=== PATIENT | female | born 1965 | race Caucasian/White ===

== ENCOUNTER → 2023-07-16 06:33 | Day surgery (SDC) | payer OTHER, SELFPAY | LOC: GI 06:33 | PROVIDERS: ATTENDING PHYSICIAN Internal Medicine Gastroenterology | DX: R13.10 Dysphagia, unspecified (principal); R12 Heartburn; K31.89 Other diseases of stomach and duodenum | CPT/HCPCS: 43239; 88305; 88342 ==

== ENCOUNTER 2024-08-14 23:00 | Inpatient (IN) | payer OTHER, SELFPAY ==
[2024-08-14 19:08] VITALS: BP 144/89
[2024-08-14 19:11] VITALS: BP 144/89
[2024-08-14 20:00] VITALS: BP 117/78
--- NOTE | 2024-08-14 20:06 | ED.GENMED ---
History of Present Illness
<Shannan Santamaria PA-C - Last Filed: 08/15/24 02:20>
General
Chief Complaint: Fall
Source: patient
Exam Limitations: none
Time Seen by Provider: 08/14/24 19:33
Nursing documentation reviewed up to this point in time: agreed with
History of Present Illness
History of Present Illness:
pt is a 59 y/o F
h/o afib on warfarin
last INR 2.1 last week
here with large hematoma to L anterior lower leg after a fall
was standing in a door way and her dog pushed past her causing her to fall with her L knee flexed and she landed on his back with her lower leg
she has a large hematoma that has developed and expanded
she has no paresthesias, weaknses in the leg
has a lot of pain with walking due to feeling 'throbbing' feeling of the blood rushing to her lower leg
no open drainage of the heamtoma
she has a history of a large hematoma to the R lower leg last year that required debridement after it became necrotizing/infected
she is asked for this hematoma to be drained
Past History
<Shannan Santamaria PA-C - Last Filed: 08/15/24 02:20>
Past History
ED Past Medical History: Arrthythmia (Atrial fibrillation), CAD, Fibromyalgia, HTN, Hypercholesterolemia, GA (non-ST), Psychiatric (Depression, anxiety, history of drug overdose September 2008) and Other (right lower extremity hematoma with cellulitis
November 2021, cardiomyopathy, migraine, kidney infection)
ED Past Surgical History: Cardiac (CARD CATH WITH STENTS 03/07/2008,02/03 2011,2012,08/12), Gynecological (Tubal ligation 1994) and Orthopedic (Orthopedic)
Social History
Tobacco: Smoker (Quit 2017)
Alcohol: Occasional
Drug: None
Personal:
Living: with family
Employment: Not employed
Family History
Family History: CAD
Review of Systems
<Shannan Santamaria PA-C - Last Filed: 08/15/24 02:20>
Review of Systems
Allergies reviewed?: Yes
All Other Systems: Not applicable
Phy Exam
<Shannan Santamaria PA-C - Last Filed: 08/15/24 02:20>
Physical Exam
Physical Exam:
GENERAL: Alert , in no apparent distress
HEAD: NCAT
NECK: no midline tenderness, active ROM intact, no paraspinal muscle tenderness;
EYE: pupils equal and reactive, EOMs intact.
ENT: o/p clr, mmm. no hemotympanum
CARDIAC: Regular rate and rhythm, no edema
LUNGS: Clear breath sounds bilaterally, no acute respiratory distress, no wheezes/rales/rhonchi
ABDOMEN: Soft, without focal tenderness, no r/g, no cvat
NEUROLOGICAL: Alert and oriented, no focal neuro deficits, CN intact, 5/5 strength, sensation intact
SKIN: Warm and dry, intact large hematoma L anterior lower leg irregularly shaped, nearly the entire lower leg from above the ankle to below the knee which is anterior; very tender
MUSCULOSKELETAL: L calf soft, nontender, soft compartment, normal sensation and strength;
ankle and foot normal
PSYCH: Normal and appropriate interaction.
Course
<Shannan Santamaria PA-C - Last Filed: 08/15/24 02:20>
Orders/Labs/Results
Orders:
Orders
08/14/24 20:05
CR Leg Tibia/fibula Left 2 Vw Urgent
Comment:
Reason For Exam: fall on L lower leg; hematoma
08/14/24 20:43
Oxycodone [Roxicodone] 5 mg PO NOW STA
08/14/24 20:53
HYDROmorphone [Dilaudid] 1 mg IV NOW STA
08/14/24 20:54
CeFAZolin 2 GRAM [Ancef] 2 grams in 10 ml IV NOW
08/14/24 21:14
Complete Blood Count/With Diff Urgent
Prothrombin Time Urgent
08/14/24 22:49
Admit/Transfer Patient As Directed
Co-Sign Provider:
Level of Care: Inpatient admission
Assign to:: Medical/Surgical
Physician / Group: danna
Diagnosis: hematoma
Reason for Hospitalization: hematoma
Expected length of stay greater than two midnights?: Yes
ELOS- Estimated Length of Stay in days: 2
I certify the patient meets the requirements for IP care: Yes
PRN Pain Medication Management As Directed
May give lesser potent ordered pain med per pt: Yes
preference::
Protocol:: Medication orders for pain may be administered in a
manner that supports deferring to patient preference
when the pt is:
- Requesting an ordered lesser potent pain medication.
Least to most potent pain medications are defined
as: acetaminophen < NSAID < tramadol < opioids
(morphine, oxycodone, hydromorphone).
- Requesting a lesser dose of the same medication IF
ORDERED.
- Requesting a less intrusive route of administration
if both routes are prescribed by the provider (PO <
IV).
08/14/24 22:50
Code Status As Directed
Resuscitation Status: Full Code
08/14/24 23:00
Flush (0.9% Sodium Chloride) [Flush (Nss)] See Dose Instructions IV PER PROTOCOL
08/14/24 23:18
Acetaminophen [Tylenol] 650 mg PO Q4HPRN PRN
HYDROmorphone [Dilaudid] 0.5 mg IV Q4HPRN PRN
08/15/24 01:09
SURGICAL CONSULT Routine
Consulting Provider: Alex,Damien J.
Was physician already notified: Yes
VTE Contraindication Routine
VTE Mechanical Device Contraindication: Medical Contraindication
Pharmocologic Contraindication: Medical Contraindication
Activity As Directed
Activity Level: As Tolerated
Vital Signs As Directed
Frequency: Per unit guidelines
08/15/24 06:00
Complete Blood Count/With Diff IN AM
Comprehensive Metabolic Panel IN AM
08/15/24 Dinner
Regular
At Your Request: Full Participation
Abnormal Lab Results
08/14/24
21:14
WBC 13.2 H 10^3/uL
(4.8-10.8)
MCHC 32.5 L g/dL
(33.0-37.0)
RDW 14.9 H %
(11.5-14.5)
Abs Immat Gran (auto) 0.1 H 10^3/uL
(0-0.05)
Absolute Neuts (auto) 9.3 H 10^3/uL
(1.4-6.5)
Absolute Monos (auto) 1.2 H 10^3/uL
(0.1-0.6)
Lymphocytes % 18.2 L %
(20.5-51.1)
PT 21.3 H Sec
(11.4-14.6)
08/14/24 21:14
Vital Signs
Initial and Last Documented VS:
Initial Vital Signs
Temp Pulse Resp BP Pulse Ox
37.1 C 65 20 144/89 94
08/14/24 19:08 08/14/24 19:08 08/14/24 19:08 08/14/24 19:08 08/14/24 19:08
Last Documented Vital Signs
Temp Pulse Resp BP Pulse Ox
36.9 C 62 18 139/69 95
08/15/24 01:00 08/15/24 01:00 08/15/24 01:00 08/15/24 01:00 08/15/24 01:00
<Jonathan Zamora Naina, - Last Filed: 08/14/24 23:08>
Orders/Labs/Results
Orders:
Orders
08/14/24 20:05
CR Leg Tibia/fibula Left 2 Vw Urgent
Comment:
Reason For Exam: fall on L lower leg; hematoma
08/14/24 20:43
Oxycodone [Roxicodone] 5 mg PO NOW STA
08/14/24 20:53
HYDROmorphone [Dilaudid] 1 mg IV NOW STA
08/14/24 20:54
CeFAZolin 2 GRAM [Ancef] 2 grams in 10 ml IV NOW
08/14/24 21:14
Complete Blood Count/With Diff Urgent
Prothrombin Time Urgent
08/14/24 22:49
Admit/Transfer Patient As Directed
Co-Sign Provider:
Level of Care: Inpatient admission
Assign to:: Medical/Surgical
Physician / Group: danna
Diagnosis: hematoma
Reason for Hospitalization: hematoma
Expected length of stay greater than two midnights?: Yes
ELOS- Estimated Length of Stay in days: 2
I certify the patient meets the requirements for IP care: Yes
PRN Pain Medication Management As Directed
May give lesser potent ordered pain med per pt: Yes
preference::
Protocol:: Medication orders for pain may be administered in a
manner that supports deferring to patient preference
when the pt is:
- Requesting an ordered lesser potent pain medication.
Least to most potent pain medications are defined
as: acetaminophen < NSAID < tramadol < opioids
(morphine, oxycodone, hydromorphone).
- Requesting a lesser dose of the same medication IF
ORDERED.
- Requesting a less intrusive route of administration
if both routes are prescribed by the provider (PO <
IV).
08/14/24 22:50
Code Status As Directed
Resuscitation Status: Full Code
08/14/24 23:00
Flush (0.9% Sodium Chloride) [Flush (Nss)] See Dose Instructions IV PER PROTOCOL
08/14/24 23:18
Acetaminophen [Tylenol] 650 mg PO Q4HPRN PRN
HYDROmorphone [Dilaudid] 0.5 mg IV Q4HPRN PRN
08/15/24 01:09
SURGICAL CONSULT Routine
Consulting Provider: Damien Johnson
Was physician already notified: Yes
VTE Contraindication Routine
VTE Mechanical Device Contraindication: Medical Contraindication
Pharmocologic Contraindication: Medical Contraindication
Activity As Directed
Activity Level: As Tolerated
Vital Signs As Directed
Frequency: Per unit guidelines
08/15/24 06:00
Complete Blood Count/With Diff IN AM
Comprehensive Metabolic Panel IN AM
08/15/24 Dinner
Regular
At Your Request: Full Participation
Abnormal Lab Results
08/14/24
21:14
WBC 13.2 H 10^3/uL
(4.8-10.8)
MCHC 32.5 L g/dL
(33.0-37.0)
RDW 14.9 H %
(11.5-14.5)
Abs Immat Gran (auto) 0.1 H 10^3/uL
(0-0.05)
Absolute Neuts (auto) 9.3 H 10^3/uL
(1.4-6.5)
Absolute Monos (auto) 1.2 H 10^3/uL
(0.1-0.6)
Lymphocytes % 18.2 L %
(20.5-51.1)
PT 21.3 H Sec
(11.4-14.6)
08/14/24 21:14
Vital Signs
Initial and Last Documented VS:
Initial Vital Signs
Temp Pulse Resp BP Pulse Ox
37.1 C 65 20 144/89 94
08/14/24 19:08 08/14/24 19:08 08/14/24 19:08 08/14/24 19:08 08/14/24 19:08
Last Documented Vital Signs
Temp Pulse Resp BP Pulse Ox
36.9 C 62 18 139/69 95
08/15/24 01:00 08/15/24 01:00 08/15/24 01:00 08/15/24 01:00 08/15/24 01:00
<Shannan Santamaria PA-C - Last Filed: 08/15/24 02:20>
MDM/Problems Addressed
Differential Diagnosis Includes:
hematoma, fracture
MDM/Problems Addressed:
stephanie mckennabial 59 y/o F with h/o afib on coumadin
had h/o previous infected hematoma of the R leg that required surgical debridement 2021
here with Lpretibial large hematoma from fall tonight
nv intact
xray neg
pt was very insistent on hematoma to be drained here becuase of previous infected hematoma despite my concern against draining it here
i asked dr. hernandez to see her and he agreed for attempt to drain
a small anterior incision made, but with pressure to evacuate clot, the skin split to a much larger incision; pt did not tolerate attempts to evaculate the blood by ed attending
needs gen surgery consult (i did make dr. johnson aware) and wound care consult;
<Shannan Santamaria PA-C - Last Filed: 08/15/24 02:20>
*Critical Care Note
Total Time (30-74mins, 75-104mins- exclusive of procedures): Not Applicable
ED Attending Note
<JASON Rubio Last Filed: 08/15/24 02:20>
-
Portions of this chart may have been created with voice recognition software.� Occasional wrong word or��sound alike� substitutions may have occurred due to the inherent limitations of voice recognition software.
<Jonathanparesh Zamora Naina, DO - Last Filed: 08/14/24 23:08>
ED Attending Note
Patient seen and examined by attending physician: Yes
I performed the substantive portion of visit, reviewed & personally made and approve the management plan that is documented in note by myself or RHONA.: Yes
ED Attending Note:
I evaluated the patient at bedside. The patient has a large pretibial hematoma associated with Coumadin use. She requests that we open this up as she did have complications on the right side when it was not opened up initially. On the other side,
Dr. Bell did ultimately open up the wound. Her INR tonight is 1.8. White count is 13.2. Will give IV antibiotics. Although she does not appear currently to have any infection. Planning to keep in the hospital for more urgent specialty
consultation.
Discharge Plan
Departure
Patient Disposition: Admit
Date of Disposition: 08/14/24
Time of Disposition: 22:24
Admit to: Med/Surg
Presentation/result/management discussed w/ accepting MD/DO: Hospitalist
Condition: Fair
Covid-19: Not Applicable
Discharge Problem:
Hematoma, Intractable pain
Interventions
Interventions:
*Risk Screen - Suicide Last Done: 08/14/24 19:19
*General Assessment Last Done: 08/14/24 19:19
*Neglect/Abuse Screening Last Done: 08/14/24 19:19
*ED- Fall Risk Assessment Last Done: 08/14/24 19:19
*ED COVID-19 Vaccine History Last Done: 08/14/24 19:19
*Nursing Disposition Last Done: 08/15/24 01:14
ED-Musculoskeletal Assessment Last Done: 08/14/24 19:19
ED- Neurological Assessment Last Done: 08/14/24 19:18
ED-Skin Assessment Last Done: 08/14/24 19:19
Discharge Date and Time
Discharge Date/Time: 08/15/24 01:14
[2024-08-14] MEDS: ROXICODONE 5 MG PO (20:49)
[2024-08-14] MEDS: DILAUDID 1 MG IV (21:11)
[2024-08-14] MEDS: ANCEF 10 IV (21:12)
[2024-08-14 21:24] LABS: % Basophils 0.7 % (0-2); % Eosinophils 1.7 % (0-6); % Immature Granulocytes 0.5 % (0-0.5); % Lymphocytes 18.2 % (20.5-51.1); % Monocytes 8.8 % (1.7-9.3); % Neutrophils 70.1 % (42.2-75.2); Absolute Basophils 0.1 10^3/uL (0-0.2); Absolute Eosinophils 0.2 10^3/uL (0-0.7); Absolute Immature Granulocytes 0.1 10^3/uL (0-0.05); Absolute Lymphocytes 2.4 10^3/uL (1.2-3.4); Absolute Monocytes 1.2 10^3/uL (0.1-0.6); Absolute Neutrophils 9.3 10^3/uL (1.4-6.5); Hematocrit 40.3 % (37.0-47.0); Hemoglobin 13.1 g/dL (12.0-16.0); Mean Corp Hgb Conc. 32.5 g/dL (33.0-37.0); Mean Corpuscular Hgb 30.8 pg (27.0-31.0); Mean Corpuscular Volume 94.6 fL (81.0-99.0); Mean Platelet Volume 9.4 fL (7.4-10.4); Nucleated Red Blood Cells % 0 %; Platelet Count 310 10^3/uL (130-400); Red Blood Cell Count 4.26 10^6/uL (4.20-5.40); Red Cell Dist. Width 14.9 % (11.5-14.5); White Blood Cell Count 13.2 10^3/uL (4.8-10.8)
[2024-08-14 21:35] LABS: INR 1.82; PT 21.3 Sec (11.4-14.6)
--- NOTE | 2024-08-14 22:52 | HPS.HSE ---
Addendum entered and electronically signed by Elif Guillermo MD 08/14/24 23:02:
Wound care consulted.
Original Note:
Family Physician
-
Family Physician: Parveen Haynes
Chief Complaint
-
left leg hematoma
History of Present Illness
59-year-old female past medical history of paroxysmal atrial fibrillation on Coumadin, CAD status post stents, hypertension, hyperlipidemia, obesity, fibromyalgia, anxiety/depression, chronic sciatica, GERD, presenting with large hematoma left
anterior lower leg after a fall today. Patient was standing in her doorway and her dog pushed past her causing her to fall with her left knee flexed and she landed on her left lower leg. She has a large hematoma that developed expanded. Denies
any numbness or tingling or weakness in the leg. She has a lot of pain with walking and feels throbbing and feeling of blood rushing to the leg. Denies any open drainage.
She has history of large hematoma right lower leg last year that required debridement after became necrotizing and infected. She is requesting that hematoma be drained.
She smokes occasionally. Denies alcohol use.
Medical History
Past Medical History
Past Medical History: Reports Other (paroxysmal atrial fibrillation on Coumadin, CAD status post stents, hypertension, hyperlipidemia, obesity, fibromyalgia, anxiety/depression, chronic sciatica, GERD)
Past Surgical History: Reports Tonsilectomy and Other (Gynecological (Tubal ligation 1994) and Orthopedic (Orthopedic))
Social History
Tobacco: Smoker
Alcohol: None
Drug: None
Family History
Family History: Not pertinent
Allergies / Home Medications
Allergies reflects when Allergies were last updated in [facility].
Home Medications with original date entered in [facility]
Allergy/Medication List:
Allergies
Allergy/AdvReac Type Severity Reaction Status Date / Time
linezolid Allergy Hypotension Verified 08/14/24 19:13
and hives
morphine [Morphine] Allergy Does not Verified 08/14/24 19:13
like the
way it
made her
feel.
Home Medications
nitroglycerin 0.4 mg sublingual tablet 0.4 mg sublingual [id number] PRN chest pain ##25 03/06/17
ezetimibe 10 mg tablet 10 mg PO HS High cholesterol 12/19/21
trazodone 300 mg tablet 300 mg PO HS Mental Health/Anxiety ##0 12/19/21
rosuvastatin 40 mg tablet 40 mg PO HS High cholesterol 12/20/21
fenofibrate nanocrystallized 48 mg tablet 48 mg PO HS High cholesterol 12/31/21
metoprolol succinate 25 mg tablet,extended release 24 hr 12.5 mg PO HS Heart disease/condition 12/31/21
aspirin 81 mg tablet,delayed release 81 mg PO HS Blood clot prevention/tx 01/01/22
oxycodone 10 mg tablet 10 mg PO Q6HPRN PRN mod pain 12/22/22
gabapentin 300 mg capsule 300 mg PO DAILY Pain 02/14/23
warfarin 5 mg tablet 2.5 mg PO WEFRSA Blood Clot Prevention/Tx 02/14/23
warfarin 5 mg tablet 5 mg PO SUMOTUTH Blood Clot Prevention/Tx 02/14/23
alprazolam 0.25 mg tablet 0.25 mg PO BID PRN anxiety #10 tabs 02/26/23
Review of Systems
-
History Source: Patient
A 12 point ROS was completed and negative except as noted: Yes
Constitutional: Reports No Symptoms
EENT: Reports No Symptoms
Respiratory: Reports No Symptoms
Cardiac: Reports No Symptoms
Abdomen/GI: Reports No Symptoms
: Reports No Symptoms
Musculoskeletal: Reports No Symptoms
Skin: Reports See HPI
Neurological: Reports No Symptoms
Endocrine: Reports No Symptoms
Hematologic/Lymphatic: Reports No Symptoms
Psych: Reports No Symptoms
Physical Exam
Vital Signs
Vital Signs
Temp Pulse Resp BP Pulse Ox
98.7 F 65 20 144/89 92
08/14/24 19:08 08/14/24 19:08 08/14/24 19:08 08/14/24 19:11 08/14/24 19:15
Physical Exam
General: Well Developed, Well Nourished and No Apparent Distress
HEENT: NormoCephalic, Moist mucous membranes and Atraumatic
Respiratory: Clear
Cardiac: S1/S2 and Regular Rhythm; No Murmur or Rub
GI: Soft, Non Tender, Non Distended and Normal Bowel Sounds; No Organomegaly
Rectal: Deferred by Provider
Musculoskeletal: No Clubbing, No Cyanosis and No Edema
Skin: Other (left anterior extremity hematoma ); No Rash
Neuro: Nonfocal/grossly intact
Laboratory Results
-
08/14/24 21:14
Laboratory Results
PT 21.3 Sec (11.4-14.6) H 08/14/24 21:14
INR 1.82 08/14/24 21:14
Data Reviewed
-
Lab Data: Labs Reviewed by me
Old Records: Reviewed
Impression/Plan
-
IMPRESSION:
PLAN:
# Large left pretibial hematoma secondary to fall
- Tibia/fibula x-ray unremarkable apart from hematoma
-Hold Coumadin and aspirin
-INR of 1.82
- Hematoma attempted to be drained in ER but with pressure to evacuate the skin split and patient did not tolerate
- General Surgery consulted
-Dilaudid for pain
History of large hematoma right lower extremity that became infected status post debridement
CAD status post stent
- Hold aspirin
Paroxysmal atrial fibrillation
- Continue metoprolol
- Hold Coumadin
Essential hypertension
Hyperlipidemia
-Continue Zetia, fenofibrate, statin
Fibromyalgia/chronic sciatica
-Continue gabapentin
-Continue oxycodone, trazodone
Anxiety/depression
- Continue Xanax
Active smoker
GERD
Obesity
Full code
DVT prophylaxis�none
Regular diet
[2024-08-14 23:03] VITALS: BP 144/86
[2024-08-14] MEDS: DILAUDID 0.5 MG IV (23:29)
[2024-08-14] MEDS: TYLENOL 650 MG PO (23:29)
[2024-08-15] VITALS (10 sets, daily range): BP systolic 104–150; BP diastolic 59–82; BMI 33.3
[2024-08-15] MEDS: DILAUDID 0.5 MG IV ×5 (01:49→22:19)
--- NOTE | 2024-08-15 03:01 | PTCARENOTE ---
Pt. received from ER and upon walking from stretcher to room bed, LLE wound dressing saturated through, redressed with nonadherent pads, ABD, and kerlix. Reached out to house ALLOCATIONS CLERK for change in frequency of pain medication d/t pain with dressing
changes. Pt. oriented to room and unit policies, call light within reach, bed locked and in lowest position, and side rails in place.
[2024-08-15] MEDS: FLUSH (NSS) 2 FLUSH IV ×2 (04:24→08:44)
[2024-08-15] MEDS: DILAUDID 1 MG IV (04:24)
[2024-08-15 07:24] LABS: % Basophils 0.9 % (0-2); % Immature Granulocytes 0.7 % (0-0.5); % Lymphocytes 25.5 % (20.5-51.1); % Monocytes 10.8 % (1.7-9.3); % Neutrophils 59.1 % (42.2-75.2); Absolute Basophils 0.1 10^3/uL (0-0.2); Absolute Eosinophils 0.3 10^3/uL (0-0.7); Absolute Immature Granulocytes 0.1 10^3/uL (0-0.05); Absolute Lymphocytes 2.9 10^3/uL (1.2-3.4); Absolute Monocytes 1.2 10^3/uL (0.1-0.6); Absolute Neutrophils 6.7 10^3/uL (1.4-6.5); Hematocrit 33.5 % (37.0-47.0); Hemoglobin 10.8 g/dL (12.0-16.0); Mean Corp Hgb Conc. 32.2 g/dL (33.0-37.0); Mean Corpuscular Hgb 30.7 pg (27.0-31.0); Mean Corpuscular Volume 95.2 fL (81.0-99.0); Mean Platelet Volume 9.7 fL (7.4-10.4); Nucleated Red Blood Cells % 0 %; Platelet Count 286 10^3/uL (130-400); Red Blood Cell Count 3.52 10^6/uL (4.20-5.40); Red Cell Dist. Width 14.7 % (11.5-14.5); White Blood Cell Count 11.4 10^3/uL (4.8-10.8)
[2024-08-15 07:37] LABS: ALT (SGPT) 10 U/L (0-35); AST (SGOT) 21 U/L (14-36); Albumin 3.6 g/dl (3.5-5.0); Alkaline Phosphatase 52 U/L (38-126); Blood Urea Nitrogen 21 mg/dl (7-17); Carbon Dioxide 28 mmol/L (22-30); Chloride 102 mmol/L (98-107); Estimated Creatinine Clearance 82 ml/min; Glucose 112 mg/dl (70-99); Potassium 4.6 mmol/L (3.5-5.1); Sodium 138 mmol/L (135-145); Total Bilirubin 0.7 mg/dl (0.2-1.3); Total Protein 5.7 g/dl (6.3-8.2); eGFR > 60.00
--- NOTE | 2024-08-15 07:44 | CON.GS ---
Addendum entered and electronically signed by Doroteo Groves MD 08/15/24 11:12:
I saw and examined the patient independently.
The Advanced Nursing Professor's note was reviewed and I agree with the note, assessment and plan except where noted below.
Comment: This is a 59-year-old female with a history of paroxysmal A-fib on warfarin INR is 1.8 here with a left lower extremity hematoma and active oozing. She did undergo a bedside incision in the emergency department but the patient did not
tolerate this well. Will plan for operative debridement later today pending OR availability.
N.p.o., IV fluids, IV antibiotics on-call to the OR.
Wound care: Likely packed the wound today, might transition to a wound VAC later this week.
Risks/Benefits/Alternatives, expected postoperative course and possible complications (bleeding, infection, injury to surrounding structures, acute/chronic pain) discussed at length. Patient wishes to proceed with surgery. All questions answered.
Consent obtained.
I spent 60 minutes in total for the care of this patient today including direct patient care and counseling, reviewing labs, imaging, coordination of care, as well as documentation.
Original Note:
Consultation
-
Date/Time Consultation Performed: 08/15/24814
Medical History
-
Chief Complaint: fall
History of Present Illness:
59 yo female with a h/o PAF on warfarin, GERD, HTN, CAD, [place], cardiac stents and prior RLE hematoma which required bedside debridement in 2021 who presents after a mechanical fall yesterday after being pushed by a dog with injury to her left chairez
with development of hematoma causing her to present through the ED for evaluation. She denies numbness or tingling but does have a good deal of pain to the site. Evacuation of the hematoma was attempted in the ED unsuccessfully with bleeding noted.
Past Medical History
Past Medical History: Arrhythmias (paf on coumadin), CAD (s/p stents), GERD, HTN, Hypercholesterolemia, [place], Psychiatric (anxiety/depression) and Other (obesity, fibromyalgia, sciatic nerve pain)
Past Surgical History: Gynecological (tubal 1995), Orthopedic (Right arm) and Tonsilectomy
Social History
Tobacco: Smoker
Alcohol: None
Personal:
Living: With Family
Family History
Family History: Other (Mother with CVA--father at age 50 of an AZ)
Allergies / Home Medications
Allergy/AdvReac Type Severity Reaction Status Date / Time
linezolid Allergy Hypotension Verified 08/14/24 19:13
and hives
morphine [Morphine] Allergy Does not Verified 08/14/24 19:13
like the
way it
made her
feel.
�Medication �Instructions �Recorded �Confirmed �Type
nitroglycerin 0.4 mg sublingual 0.4 mg sublingual [id number] PRN 03/06/17 08/14/24 Rx
tablet chest pain ##25
ezetimibe 10 mg tablet 10 mg PO HS High cholesterol 12/19/21 08/14/24 History
trazodone 300 mg tablet 300 mg PO HS Mental Health/Anxiety 12/19/21 08/14/24 History
##0
rosuvastatin 40 mg tablet 40 mg PO HS High cholesterol 12/20/21 08/14/24 History
fenofibrate nanocrystallized 48 mg 48 mg PO HS High cholesterol 12/31/21 08/14/24 History
tablet
metoprolol succinate 25 mg 12.5 mg PO HS Heart 12/31/21 08/14/24 History
tablet,extended release 24 hr disease/condition
aspirin 81 mg tablet,delayed 81 mg PO HS Blood clot 01/01/22 08/14/24 History
release prevention/tx
oxycodone 10 mg tablet 10 mg PO Q6HPRN PRN mod pain 12/22/22 08/14/24 History
gabapentin 300 mg capsule 300 mg PO DAILY Pain 02/14/23 08/14/24 History
warfarin 5 mg tablet 2.5 mg PO WEFRSA Blood Clot 02/14/23 08/15/24 History
Prevention/Tx
warfarin 5 mg tablet 5 mg PO SUMOTUTH Blood Clot 02/14/23 08/14/24 History
Prevention/Tx
Review of Systems
-
History Source: Patient
All other systems: Negative unless noted
A 10 point review of systems was completed, and was negative except as per HPI.
Physical Exam
Vital Signs
Temp Pulse Resp BP Pulse Ox
98.4 F 62 18 139/69 95
08/15/24 01:00 08/15/24 01:00 08/15/24 01:00 08/15/24 01:00 08/15/24 01:00
08/14/24 08/15/24 08/16/24
06:59 06:59 06:59
Actual Weight 90.809 kg
Body Mass Index (BMI) 33.3
Lab Results
08/15/24 06:31
08/15/24 06:31
WBC 11.4 10^3/uL (4.8-10.8) H 08/15/24 06:31
Hgb 10.8 g/dL (12.0-16.0) L 08/15/24 06:31
Hct 33.5 % (37.0-47.0) L 08/15/24 06:31
Plt Count 286 10^3/uL (130-400) 08/15/24 06:31
Abs Immat Gran (auto) 0.1 10^3/uL (0-0.05) H 08/15/24 06:31
Neutrophils % 59.1 % (42.2-75.2) 08/15/24 06:31
Physical Exam
General: Well Developed and Well Nourished
HEENT: Moist Mucous Membranes
Respiratory: Non Labored Respirations
GI: Soft and Non Tender
Skin: Warm, Dry and Other (LLE with large hematoma, actively bleeding. Ecchymosis left axilla (? fingerprints from being assisted up). Ecchymosis to right calf.)
Neuro: Awake, Alert and AO x 3
Psych: Other (anxious, shaking)
Data Reviewed
-
Radiology: Image Personally Visualized and interpreted, Report Reviewed by me, Discussed with Physician and Discussed with Patient
Labs: Labs Reviewed by me, Discussed with Physician and Discussed with Patient
Old Records: Reviewed
Assessment / Plan
-
59 yo female h/o PAF on warfarin (INR 1.82), GERD, HTN, CAD, [place], cardiac stents and prior RLE hematoma which required bedside debridement in 2021 who presents after a mechanical fall yesterday after being pushed by a dog with injury to her left chairez
with development of hematoma. Evacuation of the hematoma was attempted in the ED unsuccessfully with bleeding noted. Xray without fracture. AFVSS.
Acute blood loss anemia: Hgb dropped from 13.1 to 10.8 overnight with developing hematoma to the left chairez below the tibial plateau
--NPO for OR later today for clot evacuation and control of bleeding
--Shaun wrap applied for compression
--Vit K 1mg IV now
--Ok for home PO meds, hold ASA for now
--Will trend labs
--Patient apprehensive, anxious. Will give lorazepam 0.5mg q12h prn.
[2024-08-15] MEDS: ATIVAN 0.5 MG PO (08:43)
[2024-08-15] MEDS: AQUAMEPHYTON 50.1 MG IV (08:43)
[2024-08-15] MEDS: NEURONTIN 300 MG PO (08:43)
--- NOTE | 2024-08-15 09:07 | WOUNDNOTE ---
WOC RN note: [place] texted Zuleika Valencia NP who confirmed to cancel WOC RN consult and general surgeon to determine if/when to consult WOC RN. Patient going to OR today for LLE hematoma.
--- NOTE | 2024-08-15 09:26 | CM ---
Reviewed the chart notes and spoke with the patient at the bedside. CM consult for Advanced Directive received. Provided the patient with Advanced Directive packet for review. The patient resides with her spouse in a bi-level home with a total of
five steps to enter the home. The patient reports no DME/SNF in the past, but has had [facility]. Patient confirmed her [facility] of choice is [facility]. CM continues to be available to patient/family and is monitoring medical plan for
needs at discharge.
Plan: Discharge to home with possible need of VN. If VN needed patient prefers [facility]. Referral sent through [facility].
--- NOTE | 2024-08-15 12:55 | W.SUR.PREOP ---
Pre-Operative Surgical Note
-
I have examined this patient prior to the performance of the scheduled procedure.
The patient's condition is unchanged from the time of the current History and
Physical and the patient is able to undergo the scheduled procedure.
--- NOTE | 2024-08-15 13:09 | W.PN.HOSP.TC ---
Today's Communication/Plan
-
see A/P
Assessment / Plan
Assessment / Plan
HPI: 59-year-old female past medical history of paroxysmal atrial fibrillation on Coumadin, CAD status post stents, hypertension, hyperlipidemia, obesity, fibromyalgia, anxiety/depression, chronic sciatica, GERD, presented with large hematoma left
anterior lower leg after a fall on DOA. Patient was standing in her doorway and her dog pushed past her causing her to fall with her left knee flexed and she landed on her left lower leg. She has a large hematoma that expanded. Denies any
numbness or tingling or weakness in the leg. She has a lot of pain with walking and feels throbbing and feeling of blood rushing to the leg. Denies any open drainage.
She has history of large hematoma right lower leg last year that required debridement after became necrotizing and infected. She is requesting that hematoma be drained.
A/P:
# Large left pretibial hematoma secondary to fall
Tibia/fibula x-ray unremarkable apart from hematoma
Hold Coumadin and aspirin
INR of 1.82
Hematoma attempted to be drained in ER but with pressure to evacuate the skin split and patient did not tolerate
General Surgery on board, plan for operative debridement with possible wound VAC later this week.
Cont Dilaudid for pain
Wound care CS
# History of large hematoma right lower extremity that became infected status post debridement
# CAD status post stent
Hold aspirin
# Paroxysmal atrial fibrillation
Continue metoprolol
Hold Coumadin
Daily INR
# Essential hypertension
# Hyperlipidemia
Continue Zetia, fenofibrate, statin
# Fibromyalgia/chronic sciatica
Continue gabapentin
Continue oxycodone, trazodone
# Anxiety/depression
Continue Xanax
# Active smoker
# GERD
# Obesity
Full code
DVT prophylaxis�none
Regular diet
Anticipated Discharge: 24 - 48 hours
Subjective/Interval History
-
Date of Service: August 15, 2024
Objective Data
-
Labs:
Laboratory Results
08/15/24
06:31
WBC 11.4 H
Hgb 10.8 L
Hct 33.5 L
Plt Count 286
Sodium 138
Potassium 4.6
Chloride 102
Carbon Dioxide 28
BUN 21 H
Creatinine 0.8
Glucose 112 H
Calcium 9.0
Total Bilirubin 0.7
AST 21
ALT 10
Alkaline Phosphatase 52
Vital Signs:
Vital Signs
Temp Pulse Resp BP Pulse Ox
36.4 C 75 18 145/82 97
08/15/24 07:50 08/15/24 07:50 08/15/24 07:50 08/15/24 07:50 08/15/24 08:42
I&O
08/14/24 08/15/24 08/16/24
06:59 06:59 06:59
Intake Total 480 / 480 50 / 50
Balance 480 / 480 50 / 50
Review of Systems
-
History Source: Patient
All other systems: Reviewed and negative
Physical Exam
-
General: Well Developed, Well Nourished, Comfortable, Conversant and Obese
HEENT: Normocephalic, Atraumatic and Moist Mucous Membranes
Respiratory: Clear to Auscultation and Non Labored Respirations; Negative Accessory Resp Muscle Use
Cardiac: Regular Rhythm and S1/S2
GI: Soft, Nontender and Nondistended
Skin: Warm, Dry and Other (LLE in wound dressing )
Neuro: Awake, Alert and Oriented
Psych: Calm and Intact Judgement/Insight
Data Reviewed
-
Labs: Labs Reviewed by me
--- NOTE | 2024-08-15 14:53 | PTCARENOTE ---
Patient returned to her room from Pacu post evacuation of a hematoma of the left lower extremity.She is alert but drowsy.She rates her pain at a 10 out of 10 .She received pain medicine in the PACU shortly before coming to her room.The dressing on
the left lower leg is intact without drainage.The patient is in her bed with the call morelos in reach.
--- NOTE | 2024-08-15 15:02 | W.IMMPOSTOP ---
Surgical Immed Post Op Note
-
Primary Surgeon: Doroteo Groves MD
Assisting Surgeon: None
Pre-op Diagnosis: Left lower extremity hematoma
Post-op Diagnosis: Same
Procedure Performed: Evacuation of the left lower extremity hematoma
Anesthesia Type: General
Specimen / Cultures: None
Estimated Blood Loss: 7 cc
Complications: None
Operative Findings: Large subcutaneous hematoma with a 17 cm diagonal laceration. Clot evacuated and a few pinpoint bleeders stopped. 1 g of TXA given intra operatively. After achieving hemostasis and washing out the wound. The skin was loosely
stapled together. This was covered with a piece of Adaptic dressing followed by ABDs, and an Shaun wrap
POST OP PLAN:
Imaging: None
Labs: Routine AM
Diet: Advance to Regular as tolerated
Analgesia: Tylenol 650mg q6 Anuradha, Inga 5mg q6 PRN, Dilaudid 0.5mg q2h PRN
Neuro/vascular checks: q4h
AC/AP: Hold Therapeutic AC, Ok for DVT PPx
Activity: Ad Soraya
Wound/Incisions/Drains: Change dressing as described above daily.
Abx: None
Dispo: RNF
--- NOTE | 2024-08-15 15:18 | OR.RPT ---
Operative Report
Operative Report
Patient Name: Chloe Smith
: 1965
Date of Operation: 08/15/2024
Preoperative Diagnosis: Left lower extremity hematoma
Postoperative Diagnosis: Same
Procedure(s):
Drainage of of a left lower extremity hematoma
Surgeon(s):
Dr. Groves
Glass Rolling Machine Operator(s):
GABBI Narayanan
Anesthesia: General
Estimated Blood Loss: 7 cc
Urine Output: None
Drains/Lines/Implants: None
Specimens: None
Indication: This is a 59-year-old female on therapeutic anticoagulation (Coumadin) for paroxysmal A-fib who suffered a mechanical traumatic fall at home and developed a large left lower extremity hematoma. She presented to our ED for evaluation
where an incision and drainage was attempted however the skin split open significantly. General surgery was consulted for management, after thorough discussion of risk benefits and alternatives the patient was consented for an operative washout and
possible skin closure. 0.5 mg of IV vitamin K was given preoperatively.
Operative Findings: Large subcutaneous hematoma with a 17 cm diagonal laceration. Clot evacuated and a few pinpoint bleeders stopped. 1 g of TXA given intra operatively. After achieving hemostasis and washing out the wound. The skin was loosely
stapled together. This was covered with a piece of Adaptic dressing followed by ABDs, and an Shaun wrap
Details of the operation:
After successful induction of general anesthesia, the patient's left lower extremity was clipped, prepped and draped. A team timeout was performed confirming administration of DVT prophylaxis, and IV antibiotics. Through the open laceration
approximately 100 cc of blood clot was evacuated. There were a few pinpoint areas of bleeding which were controlled with cautery, or suture ligation. As there was still some diffuse oozing, 1 g of TXA was given. No purulence was identified and
there was no evidence of gross contamination. The wound was irrigated with sterile saline. Hemostasis was confirmed. There was minimal blood loss. The skin was then approximated loosely using skin raquel, covered with Xeroform gauze, ABDs and
then a tight Shaun wrap. No specimens were sent to Pathology/Culture. The patient tolerated the procedure well, and returned to the Recovery Room in stable condition. Sponge and instrument counts were correct.
I was the attending physician and performed the procedure with the assistance of the CONSTRUCTION IRONWORKER above. I was present for all portions of the procedure.
Doroteo Groves MD
[2024-08-15] MEDS: ROXICODONE 10 MG PO (21:05)
[2024-08-16] MEDS: DILAUDID 0.5 MG IV ×2 (02:50→07:48)
[2024-08-16 03:04] VITALS: BP 111/73
[2024-08-16 06:59] LABS: Hemoglobin 8.7 g/dL (12.0-16.0); Mean Corp Hgb Conc. 32.2 g/dL (33.0-37.0); Mean Corpuscular Hgb 31.4 pg (27.0-31.0); Mean Corpuscular Volume 97.5 fL (81.0-99.0); Mean Platelet Volume 9.7 fL (7.4-10.4); Platelet Count 254 10^3/uL (130-400); Red Blood Cell Count 2.77 10^6/uL (4.20-5.40); Red Cell Dist. Width 14.8 % (11.5-14.5); White Blood Cell Count 11.3 10^3/uL (4.8-10.8)
[2024-08-16 07:01] LABS: INR 1.07; PT 14.2 Sec (11.4-14.6)
[2024-08-16 07:18] VITALS: BP 125/71
[2024-08-16 07:19] LABS: Blood Urea Nitrogen 15 mg/dl (7-17); Calcium 8.7 mg/dl (8.4-10.2); Carbon Dioxide 32 mmol/L (22-30); Chloride 103 mmol/L (98-107); Estimated Creatinine Clearance 94 ml/min; Glucose 109 mg/dl (70-99); Magnesium 1.8 mg/dl (1.6-2.3); Potassium 4.7 mmol/L (3.5-5.1); Sodium 137 mmol/L (135-145); eGFR > 60.00
[2024-08-16] MEDS: NEURONTIN 300 MG PO (07:48)
[2024-08-16] MEDS: TYLENOL 650 MG PO (07:48)
--- NOTE | 2024-08-16 10:10 | W.PN.GS2 ---
Addendum entered and electronically signed by Catarino Bell MD 08/16/24 10:23:
-- OK to resume Coumadin, no bridge, trend INR
Original Note:
Today's Communication / Plan
-
-- Pain control: Tylenol, Toradol, Dilaudid PO and IV for breakthrough
-- Dressing changes: Change dressing daily and PRN. Dressing instructions: Adaptec or Xeroform covering incision, ABD, Kerlix, ALETHA from knee to ankle. CM consult for VNA and logistics as outpatient.
-- Elevated LLE, wound avoid ice as this may cause vasoconstriction and limit blood flow to tenuous skin
-- Will need outpatient follow-up with Dr. Groves in 2 weeks for staple removal
-- Hospitalization for at least today, dispo pending: dressing change logistics and pain control on PO meds
Assessment / Plan
-
Patient is a 59 yo F p/w a traumatic LLE hematoma POD#1 s/p operative evacuation
AVSS
Labs notable for a persistent leukocytosis, mild drift in Hb from 10 down to 8, stable renal function
Leukocytosis likely reactive from underlying process and recent operation, less likely related to an infection as no clinical signs on exam or operative findings. No need for further antibiotics from a surgical perspective.
Drift in hemoglobin likely equilibration, no signs of active bleeding clinically. Given persistent issues with pain and no further signs of bleeding plan to add Toradol to his pain regimen. Continue to monitor and recheck hemoglobin tomorrow.
Daily dressing changes ordered, will need visiting nurses and/or evaluation in the wound care center on a daily basis to evaluate this wound and provide dressing care.
Pain issues noted above, changed from oxycodone to Dilaudid, Toradol added
-- Pain control: Tylenol, Toradol, Dilaudid PO and IV for breakthrough
-- Dressing changes: Change dressing daily and PRN. Dressing instructions: Adaptec or Xeroform covering incision, ABD, Kerlix, ALETHA from knee to ankle
-- Elevated LLE, wound avoid ice as this may cause vasoconstriction and limit blood flow to tenuous skin
-- No need for further abx from surgical perspective
-- Will need outpatient follow-up with Dr. Groves in 2 weeks for staple removal
-- Hospitalization for at least today, dispo pending: dressing change logistics and pain control on PO meds
Subjective Data
-
Date of Service: August 16, 2024
Pain with moving or bumping LLE; denies worsening pain. Oxycodone dose increased overnight, still needing IV Dilaudid breakthrough. No fevers or chills. No reports of drainage or saturation of the dressing. No dizziness or lightheadedness. No
new neurologic symptoms of LLE.
Objective Data
-
Intake and Output
08/15/24 08/16/24 08/17/24
06:59 06:59 06:59
Intake Total 480 / 480 290 / 290
Balance 480 / 480 290 / 290
Intake:
Oral fluids 480 / 480 240 / 240
IV piggybacks 50 / 50
Other:
Number of approximated MODERATE 1
amounts of urine
How many times incontinent 1
MODERATE amount urine
Vital Signs
Temp Pulse Resp BP Pulse Ox
98.8 F 79 19 125/71 93
08/16/24 07:18 08/16/24 07:18 08/16/24 07:18 08/16/24 07:18 08/16/24 07:18
Lab Results
08/16/24 06:31
08/16/24 06:31
Calcium 8.7 mg/dl (8.4-10.2) 08/16/24 06:31
Magnesium 1.8 mg/dl (1.6-2.3) 08/16/24 06:31
Total Bilirubin 0.7 mg/dl (0.2-1.3) 08/15/24 06:31
AST 21 U/L (14-36) 08/15/24 06:31
ALT 10 U/L (0-35) 08/15/24 06:
Alkaline Phosphatase 52 U/L (38-126) 08/15/24 06:
Total Protein 5.7 g/dl (6.3-8.2) L 08/15/24 06:
Albumin 3.6 g/dl (3.5-5.0) 08/15/24 06:
Physical Exam
-
Gen: NAD
LLE: dressing c/d/i, taken down, incision c/d/i - no drainage or erythema, significant ecchymosis stable, flat without increased pressure, skin viable at this time, raquel in place, palpable pulses (DP and PT), sensation intact to light touch,
motor 3/5 limited to pain
Patient has a redding catheter: No
Patient has a central line: No
--- NOTE | 2024-08-16 10:44 | CM ---
Addendum entered by Marina Mistry 08/16/24 14:29:
Assessed by PT earlier today and recommends Home Health/VN/PT; Will need rolling walker for home use
Original Note:
Chart reviewed; s/p Post op; PT assessment pending
CM will monitor for discharge needs and support accordingly
[2024-08-16] MEDS: DILAUDID 4 MG PO ×4 (10:45→23:27)
--- NOTE | 2024-08-16 10:55 | W.PN.HOSP.TC ---
Today's Communication/Plan
-
see A/P
Assessment / Plan
Assessment / Plan
HPI: 59-year-old female past medical history of paroxysmal atrial fibrillation on Coumadin, CAD status post stents, hypertension, hyperlipidemia, obesity, fibromyalgia, anxiety/depression, chronic sciatica, GERD, presented with large hematoma left
anterior lower leg after a fall on DOA. Patient was standing in her doorway and her dog pushed past her causing her to fall with her left knee flexed and she landed on her left lower leg. She has a large hematoma that expanded. Denies any
numbness or tingling or weakness in the leg. She has a lot of pain with walking and feels throbbing and feeling of blood rushing to the leg. Denies any open drainage.
She has history of large hematoma right lower leg last year that required debridement after became necrotizing and infected. She is requesting that hematoma be drained.
A/P:
# Large left pretibial hematoma secondary to fall
# History of large hematoma right lower extremity that became infected status post debridement
Tibia/fibula x-ray unremarkable apart from hematoma
General Surgery on board, s/p operative evacuation of hematoma 08/15
Change dressing daily and PRN. Dressing instructions: Adaptec or Xeroform covering incision, ABD, Kerlix, ALETHA from knee to ankle.
Follow up outpatient with Dr. Groves in 2 weeks for staple removal
Pain control with IV and PO Dilaudid PRN
PT OT eval
# CAD status post stent
resume aspirin
# Paroxysmal atrial fibrillation
# Essential hypertension
Continue metoprolol
resume Coumadin without bridging
Daily INR
# Hyperlipidemia
Continue Zetia, fenofibrate, statin
# Fibromyalgia/chronic sciatica
Continue gabapentin
Continue oxycodone, trazodone
# Anxiety/depression
Continue Xanax
# Active smoker
# GERD
# Obesity
Full code
DVT prophylaxis�none
Regular diet
DW RN
Anticipated Discharge: Within 24 hours
Subjective/Interval History
-
Date of Service: August 16, 2024
Objective Data
-
Labs:
Laboratory Results
08/16/24
06:31
WBC 11.3 H
Hgb 8.7 L
Hct 27.0 L
Plt Count 254
PT 14.2
INR 1.07
Sodium 137
Potassium 4.7
Chloride 103
Carbon Dioxide 32 H
BUN 15
Creatinine 0.7
Glucose 109 H
Calcium 8.7
Vital Signs:
Vital Signs
Temp Pulse Resp BP Pulse Ox
37.1 C 79 19 125/71 93
08/16/24 07:18 08/16/24 07:18 08/16/24 07:18 08/16/24 07:18 08/16/24 07:18
I&O
08/15/24 08/16/24 08/17/24
06:59 06:59 06:59
Intake Total 480 / 480 290 / 290 1020 / 1020
Balance 480 / 480 290 / 290 1020 / 1020
[2024-08-16 11:29] VITALS: BP 142/60; BP 98/47; PULSE 67
--- NOTE | 2024-08-16 12:27 | VNURNOTE ---
Home Health Liaison met with patient and family member at bedside to discuss [facility] nurse/therapy, visits, schedule and homebound status. Patient is agreeable and understands that visits at home will be 2-3 x per week to assess and teach medical
management. Patient has had [facility] in the past and is familiar with services. [facility] 1-2 days after discharge from .
[facility].
--- NOTE | 2024-08-16 12:43 | WOUNDNOTE ---
VIOLET RN NOTE: Patient is s/p evacuation of hematoma in OR, now closed with raquel. Wound care and discharge instructions updated. Confirmed with Dr. Bell and Dr. Josette isaac to cancel.
[2024-08-16 15:07] VITALS: BP 103/55
[2024-08-16] MEDS: COUMADIN 5 MG PO (17:19)
[2024-08-16] MEDS: SENOKOT-S 1 TABLET PO (20:44)
[2024-08-16] MEDS: ZETIA 10 MG PO (22:51)
[2024-08-16] MEDS: CRESTOR 40 MG PO (22:51)
[2024-08-16] MEDS: ASPIR LOW (ENTERIC COATED) 81 MG PO (22:51)
[2024-08-16] MEDS: TRICOR 48 MG PO (22:51)
[2024-08-16 23:23] VITALS: BP 100/54
[2024-08-17] MEDS: DILAUDID 4 MG PO ×3 (06:16→14:51)
[2024-08-17 07:32] LABS: Hematocrit 25.5 % (37.0-47.0); Hemoglobin 8.4 g/dL (12.0-16.0); Mean Corp Hgb Conc. 32.9 g/dL (33.0-37.0); Mean Corpuscular Hgb 31.5 pg (27.0-31.0); Mean Corpuscular Volume 95.5 fL (81.0-99.0); Mean Platelet Volume 9.8 fL (7.4-10.4); Platelet Count 244 10^3/uL (130-400); Red Blood Cell Count 2.67 10^6/uL (4.20-5.40); Red Cell Dist. Width 14.9 % (11.5-14.5); White Blood Cell Count 10.4 10^3/uL (4.8-10.8)
[2024-08-17 07:41] LABS: INR 1.08; PT 14.6 Sec (11.4-14.6)
[2024-08-17 08:00] VITALS: BP 124/56
[2024-08-17 08:09] LABS: Blood Urea Nitrogen 10 mg/dl (7-17); Carbon Dioxide 34 mmol/L (22-30); Chloride 102 mmol/L (98-107); Estimated Creatinine Clearance 110 ml/min; Glucose 96 mg/dl (70-99); Potassium 4.4 mmol/L (3.5-5.1); Sodium 138 mmol/L (135-145); eGFR > 60.00
[2024-08-17] MEDS: NEURONTIN 300 MG PO (09:28)
[2024-08-17] MEDS: SENOKOT-S 1 TABLET PO (09:28)
[2024-08-17 12:20] VITALS: BP 131/73; PULSE 72; O2SAT 96
[2024-08-17 13:05] VITALS: BP 131/73; PULSE 72; O2SAT 96
--- NOTE | 2024-08-17 13:31 | W.PN.HOSP.TC ---
Addendum entered and electronically signed by Elena Finch MD 08/17/24 14:34:
total DC time 38 min
Original Note:
Today's Communication/Plan
-
DC home with HH
Assessment / Plan
Assessment / Plan
HPI: 59-year-old female past medical history of paroxysmal atrial fibrillation on Coumadin, CAD status post stents, hypertension, hyperlipidemia, obesity, fibromyalgia, anxiety/depression, chronic sciatica, GERD, presented with large hematoma left
anterior lower leg after a fall on DOA. Patient was standing in her doorway and her dog pushed past her causing her to fall with her left knee flexed and she landed on her left lower leg. She has a large hematoma that expanded. Denies any
numbness or tingling or weakness in the leg. She has a lot of pain with walking and feels throbbing and feeling of blood rushing to the leg. Denies any open drainage.
She has history of large hematoma right lower leg last year that required debridement after became necrotizing and infected. She is requesting that hematoma be drained.
A/P:
# Large left pretibial hematoma secondary to fall
# History of large hematoma right lower extremity that became infected status post debridement
Tibia/fibula x-ray unremarkable apart from hematoma
General Surgery on board, s/p operative evacuation of hematoma 08/15
Change dressing daily and PRN. Dressing instructions: Adaptec or Xeroform covering incision, ABD, Kerlix, ALETHA from knee to ankle.
Follow up outpatient with Dr. Groves in 2 weeks for staple removal
Pain control with IV and PO Dilaudid PRN, cont PO Dilaudid outpt for pain control
PT OT eval cleared for HH. Script for RW provided
# CAD status post stent
resumed aspirin
# Paroxysmal atrial fibrillation
# Essential hypertension
Continue metoprolol
resume Coumadin without bridging
Daily INR
# Hyperlipidemia
Continue Zetia, fenofibrate, statin
# Fibromyalgia/chronic sciatica
Continue gabapentin
Continue oxycodone, trazodone
# Anxiety/depression
Continue Xanax
# Active smoker
# GERD
# Obesity
Full code
DVT prophylaxis�none
Regular diet
Anticipated Discharge: Today
Subjective/Interval History
-
Date of Service: August 17, 2024
Objective Data
-
Labs:
Laboratory Results
08/17/24
07:03
WBC 10.4
Hgb 8.4 L
Hct 25.5 L
Plt Count 244
PT 14.6
INR 1.08
Sodium 138
Potassium 4.4
Chloride 102
Carbon Dioxide 34 H
BUN 10
Creatinine 0.6
Glucose 96
Calcium 9.0
Vital Signs:
Vital Signs
Temp Pulse Resp BP Pulse Ox
37.0 C 65 17 124/56 94
08/17/24 08:00 08/17/24 08:00 08/17/24 08:00 08/17/24 08:00 08/17/24 08:00
I&O
08/16/24 08/17/24 08/18/24
06:59 06:59 06:59
Intake Total 290 / 290 2700 / 2700
Balance 290 / 290 2700 / 2700
Review of Systems
-
History Source: Patient
All other systems: Reviewed and negative
Physical Exam
-
General: Well Developed, Well Nourished, Comfortable, Conversant and Obese
HEENT: Normocephalic, Atraumatic and Moist Mucous Membranes
Respiratory: Clear to Auscultation and Non Labored Respirations; Negative Accessory Resp Muscle Use
Cardiac: Regular Rhythm and S1/S2
GI: Soft, Nontender and Nondistended
Skin: Warm, Dry and Other (LLE in wound dressing )
Neuro: Awake, Alert and Oriented
Psych: Calm and Intact Judgement/Insight
Data Reviewed
-
Labs: Labs Reviewed by me
--- NOTE | 2024-08-17 14:05 | W.DCSUMMARY ---
Discharge Summary
Discharge Data
Date of Admission: 08/14/24
Date of Discharge: 08/17/24
-
Pending Results: No
Hospital Course
Principal Diagnosis:
Large left pretibial hematoma secondary to fall
Chronic Diagnoses:�
History of large hematoma right lower extremity that became infected status post debridement
CAD status post stent
Paroxysmal atrial fibrillation on Coumadin
Essential hypertension
Hyperlipidemia
Fibromyalgia/chronic pain syndrome
Chronic sciatica pain
Anxiety/depression, on Xanax
Active smoker
GERD
Obesity
Consultations:�
General surgery
Procedures:�
Operative evacuation of LLE hematoma 08/15 by general surgery
Clinical course:�
This is a 59-year-old female with past medical history as stated above, who presented with left lower leg anterior hematoma following a fall.
The large hematoma expanded hence she presented to the ED for evaluation.
Problem 1:
Large left pretibial hematoma secondary to fall.
Her Tibia/fibula x-ray was unremarkable apart from hematoma.
She underwent operative evacuation of hematoma on 08/15 by general surgery.
Per GS, she can continue dressing change daily and PRN.
Dressing instructions: Adaptec or Xeroform covering incision, ABD, Kerlix, ALETHA from knee to ankle.
She can follow up outpatient with Dr. Groves in 2 weeks for staple removal.
She was provided with a Dilaudid script (7 tabs) for pain control after discharge.
She has been informed to follow-up with her PCP for further narcotic refills if her pain persists.
She was discharged home with home health per PT OT recommendation.
As for the rest of her medical problems, they were stable during her hospital stay.
Discharge Plan
-
Patient Disposition: Home with Home Care
Discharge Diagnosis/Procedures: Large left pretibial hematoma secondary to fall status post operative evacuation of hematoma 08/15
Condition: Fair
Diet: As tolerated
Activity: As tolerated
Driving Restrictions: As prior to admission
Blood Work: INR with your media [employer]
Wound Care: Wound Care Instructions
L leg: per surgeon Dressing instructions: Adaptec or Xeroform covering incision, ABD, Kerlix, ALETHA from knee to ankle change daily
Follow up with Dr. Groves as instructed
Referrals:
Parveen Haynes MD [Family Provider] - in less than 1 week
Doroteo Groves MD [Active] - in two weeks (for raquel removal)
Prescriptions:
New
hydromorphone 2 mg Tablet
2 mg PO Q4HPRN PRN (Reason: for severe pain) Qty: 7 0RF
Continued
nitroglycerin 0.4 MG tablet, sublingual
0.4 mg sublingual [id number] PRN (Reason: chest pain) Qty: 25 3RF
trazodone 300 mg Tablet
300 mg PO HS Qty: 0
Patient Comments:
12/31/21 DOES NOT TAKE WITH PAIN MEDS, hold with oxycodone
ezetimibe 10 mg Tablet
10 mg PO HS
rosuvastatin 40 MG tablet
40 mg PO HS
metoprolol succinate 25 mg Tablet Extended Release 24 Hr
12.5 mg PO HS
fenofibrate nanocrystallized 48 mg tablet
48 mg PO HS
aspirin 81 mg Tablet,Delayed Release (Dr/Ec)
81 mg PO HS
oxycodone 10 mg tablet
10 mg PO Q6HPRN PRN (Reason: mod pain)
warfarin 5 mg Tablet
2.5 mg PO WEFRSA
warfarin 5 mg Tablet
5 mg PO SUMOTUTH
gabapentin 300 mg capsule
300 mg PO DAILY
Discharge Orders:
Discharge Patient (As Directed); Ordered 08/17/24
Ordered By: Elena Finch
Discharge Date and Time
Print Language: MARSHALLESE
--- NOTE | 2024-08-17 14:38 | CM ---
CM reviewed chart, patient for discharge today. Patient provided with walker by PT, script in chart. Patient will be followed by [facility]. Patient seen bedside, reports her will provide transportation home. Patient tearful/anxious regarding
discharge home with concern she will not have enough pain medication. Patient reports her PCP follow up appointment is scheduled for next . TT to Hospitalist with update. CM will continue to follow for all discharge planning needs.
Plan; home with , VN
[2024-08-17 14:52] VITALS: BP 129/68
== END 2024-08-17 16:00 | disposition home health service (06) | DRG 580 ==
LOC: 2 SOUTH 23:00
PROVIDERS: Physician Assistant; ADMITTING PHYSICIAN Hospitalist; ATTENDING PHYSICIAN Internal Medicine; CONSULT PHYSICIAN Surgery; EMERGENCY PHYSICIAN Emergency Medicine; FAMILY PHYSICIAN Family Medicine
PROC: 0JCP0ZZ Extirpation of Matter from Left Lower Leg Subcutaneous Tissue and Fascia, Open Approach (ICD-10-PCS; 2024-08-15)
DX: S80.12XA Contusion of left lower leg, initial encounter (principal); D62 Acute posthemorrhagic anemia; W19.XXXA Unspecified fall, initial encounter; I48.0 Paroxysmal atrial fibrillation; Z95.5 Presence of coronary angioplasty implant and graft; I25.10 Atherosclerotic heart disease of native coronary artery without angina pectoris; I10 Essential (primary) hypertension; E78.00 Pure hypercholesterolemia, unspecified; E66.9 Obesity, unspecified; M79.7 Fibromyalgia; Z68.33 Body mass index [BMI] 33.0-33.9, adult; F41.9 Anxiety disorder, unspecified; F32.A Depression, unspecified; M54.30 Sciatica, unspecified side; K21.9 Gastro-esophageal reflux disease without esophagitis; F17.200 Nicotine dependence, unspecified, uncomplicated; Z88.5 Allergy status to narcotic agent; Z79.01 Long term (current) use of anticoagulants; G89.4 Chronic pain syndrome; Z79.899 Other long term (current) drug therapy; Z82.3 Family history of stroke
CPT/HCPCS: 73590; 80048; 80053; 83735; 85025; 85027; 85610; 86850; 86900; 86901; 96374; 96375; 97116; 97162; 97166; 97535; 99285

== ENCOUNTER 2024-08-25 16:58 | Emergency (ER) | payer OTHER, SELFPAY ==
[2024-08-25 17:02] VITALS: BP 134/61
[2024-08-25 18:53] VITALS: BMI 33.8
--- NOTE | 2024-08-25 19:07 | ED.GENMED ---
History of Present Illness
<NICK Carey - Last Filed: 08/25/24 23:13>
General
Chief Complaint: Skin Problem
Source: patient
Exam Limitations: none
Time Seen by Provider: 08/25/24 18:28
Nursing documentation reviewed up to this point in time: agreed with
History of Present Illness
History of Present Illness:
Patient is a 59 yr old female with past medical history of CAD, cardiac stent, A-fib on Coumadin hypertension hyperlipidemia fibromyalgia who presents to the ER for evaluation of redness and pain to left leg. Patient reports she was admitted to
the hospital August 14 for a large hematoma to the left lower leg. She was admitted and had hematoma evacuation/debrided and did have infection postdebridement. She reports since yesterday she has noticed redness surrounding the area and some
burning to her skin. She does not feel ill. She denies any actual fever or chills. She currently still has raquel in place and is scheduled to have them removed August 31.
Past History
<NICK Carey - Last Filed: 08/25/24 23:13>
Past History
ED Past Medical History: Arrthythmia (Atrial fibrillation), CAD, Fibromyalgia, HTN, Hypercholesterolemia, [place] (non-ST), Psychiatric (Depression, anxiety, history of drug overdose September 2008) and Other (right lower extremity hematoma with cellulitis
November 2021, cardiomyopathy, migraine, kidney infection)
ED Past Surgical History: Cardiac (CARD CATH WITH STENTS 03/07/2008,02/03 2011,2012,08/12), Gynecological (Tubal ligation 1994) and Orthopedic (Orthopedic)
Social History
Tobacco: Smoker (Quit 2017)
Alcohol: Occasional
Drug: None
Personal:
Living: with family
Employment: Not employed
Family History
Family History: CAD
Review of Systems
<NICK Carey - Last Filed: 08/25/24 23:13>
Review of Systems
Allergies reviewed?: Yes
All Other Systems: ROS reviewed and negative except as documented in HPI and ROS
Constitutional: Reports no symptoms; Denies fever, fatigue or chills
Respiratory: Reports no symptoms
Cardiac: Reports no symptoms
Musculoskeletal: Reports other (see below )
Skin: Reports other (left leg redness/burning )
Neurological: Reports no symptoms
Psychiatric: Reports no symptoms
Phy Exam
<NICK Carey - Last Filed: 08/25/24 23:13>
General Physical Exam
General Presentation: no apparent distress
General age: appears stated age
General Skin: warm
General Habitus: elderly
General Mental: alert
Neurological Exam
Neurological Exam: alert and oriented x3
Musculoskeletal Exam
Musculoskeletal Exam: other (left lower leg with healing hematoma with raquel in place with surrounding erythema (most erythema to prox aspect and lateral region ) not circumferential no lymphangitis)
Skin Exam
Skin Exam: normal color and warm/dry
Psychiatric Exam
Psychiatric Exam: normal mood/affect
Course
<NICK Carey - Last Filed: 08/25/24 23:13>
Orders/Labs/Results
Orders:
Orders
08/25/24 19:05
IV Insert/Care/Rem.- Treatment PRN
08/25/24 20:36
Basic Metabolic Panel Urgent
Complete Blood Count/With Diff Urgent
08/25/24 22:58
Vancomycin [Vancocin] 2,000 mg 0.9% Sodium Chloride 500 ml [Nss] 500 ml IV NOW
Abnormal Lab Results
08/25/24
20:36
RBC 2.95 L 10^6/uL
(4.20-5.40)
Hgb 9.1 L g/dL
(12.0-16.0)
Hct 28.2 L %
(37.0-47.0)
MCHC 32.3 L g/dL
(33.0-37.0)
RDW 15.1 H %
(11.5-14.5)
Plt Count 450 H 10^3/uL
(130-400)
Abs Immat Gran (auto) 0.1 H 10^3/uL
(0-0.05)
Absolute Neuts (auto) 6.9 H 10^3/uL
(1.4-6.5)
Absolute Monos (auto) 0.9 H 10^3/uL
(0.1-0.6)
Immature Gran % 0.7 H %
(0-0.5)
BUN 18 H mg/dl
(7-17)
08/25/24 20:36
08/25/24 20:36
Vital Signs
Initial and Last Documented VS:
Initial Vital Signs
Temp Pulse Resp BP Pulse Ox
98.8 F 64 16 134/61 95
08/25/24 17:02 08/25/24 17:02 08/25/24 17:02 08/25/24 17:02 08/25/24 17:02
Last Documented Vital Signs
Temp Pulse Resp BP Pulse Ox
98.8 F 64 16 134/61 95
08/25/24 17:02 08/25/24 17:02 08/25/24 17:02 08/25/24 17:02 08/25/24 17:02
Dress Draper consulted with Physician
Dress Draper consulted with physician?: Yes
Name of Physician Consulted: Cesar
<Sergio Forrester, - Last Filed: 08/25/24 21:29>
Orders/Labs/Results
Orders:
Orders
08/25/24 19:05
IV Insert/Care/Rem.- Treatment PRN
08/25/24 20:36
Basic Metabolic Panel Urgent
Complete Blood Count/With Diff Urgent
08/25/24 22:58
Vancomycin [Vancocin] 2,000 mg 0.9% Sodium Chloride 500 ml [Nss] 500 ml IV NOW
Abnormal Lab Results
08/25/24
20:36
RBC 2.95 L 10^6/uL
(4.20-5.40)
Hgb 9.1 L g/dL
(12.0-16.0)
Hct 28.2 L %
(37.0-47.0)
MCHC 32.3 L g/dL
(33.0-37.0)
RDW 15.1 H %
(11.5-14.5)
Plt Count 450 H 10^3/uL
(130-400)
Abs Immat Gran (auto) 0.1 H 10^3/uL
(0-0.05)
Absolute Neuts (auto) 6.9 H 10^3/uL
(1.4-6.5)
Absolute Monos (auto) 0.9 H 10^3/uL
(0.1-0.6)
Immature Gran % 0.7 H %
(0-0.5)
BUN 18 H mg/dl
(7-17)
08/25/24 20:36
08/25/24 20:36
Vital Signs
Initial and Last Documented VS:
Initial Vital Signs
Temp Pulse Resp BP Pulse Ox
98.8 F 64 16 134/61 95
08/25/24 17:02 08/25/24 17:02 08/25/24 17:02 08/25/24 17:02 08/25/24 17:02
Last Documented Vital Signs
Temp Pulse Resp BP Pulse Ox
98.8 F 64 16 134/61 95
08/25/24 17:02 08/25/24 17:02 08/25/24 17:02 08/25/24 17:02 08/25/24 17:02
<NICK Carey - Last Filed: 08/25/24 23:13>
MDM/Problems Addressed
Differential Diagnosis Includes:
not limitd to : cellulitis
MDM/Problems Addressed:
Patient with mild cellulitis to left lower leg. She does have a hematoma which is healing with sutures in place, erythema is not circumferential or lymphangitis. No drainage or evidence of abscess. she is nontoxic-appearing denies any fever or
chills. Patient denies any fevers is afebrile here with a normal white count. Other labs reviewed potassium is clotted however normal renal function hemoglobin low at 9.1 however improved from prior.
she is anxious because she does have a history of cellulitis and sepsis on previous leg. Because patient is very well-appearing we will give a dose of IV antibiotic here in the ER but plan to send home on Doxy with close outpatient follow-up.
Patient is agreeable to this plan of care instructed to return if any worsening of symptoms. Patient was eval by ED physician. She has very close follow-up with visiting nurse tomorrow and surgical appt early next week.
<NICK Carey - Last Filed: 08/25/24 23:13>
*Pulse Oximetry
Patient hypoxic: no
*Critical Care Note
Total Time (30-74mins, 75-104mins- exclusive of procedures): Not Applicable
ED Attending Note
<NICK Carey - Last Filed: 08/25/24 23:13>
-
Portions of this chart may have been created with voice recognition software.� Occasional wrong word or��sound alike� substitutions may have occurred due to the inherent limitations of voice recognition software.
<Sergio Forrester DO - Last Filed: 08/25/24 21:29>
ED Attending Note
Patient seen and examined by attending physician: Yes
I performed the substantive portion of visit, reviewed & personally made and approve the management plan that is documented in note by myself or RHONA.: Yes
ED Attending Note:
59-year-old female who recently had hematoma evacuation who still has raquel and presents with warm red left lower extremity. She is worried because she had a similar shot in right leg and she got very sick. No fevers. She does have visiting
nurse. She is to see the surgeon on Thursday for staple removal. Visiting nurse was going to visit her tomorrow. Exam: Wound is intact with raquel. There is some surrounding redness. There is no lymphangitic spread. Mild warmth. No drainage.
Assessment and plan: White count normal. No fever. Give IV antibiotics x 1 and anticipate outpatient management to be seen tomorrow by visiting nurse and to be followed up by surgeon on Thursday. Patient agrees she will come back for any
progressive redness. Will also draw a demarcation line
Discharge Plan
Departure
Patient Disposition: Home (Routine Discharge)
Date of Disposition: 08/25/24
Time of Disposition: 23:08
Patient with high blood pressure during this ER visit?: No
Condition: Fair
Covid-19: Not Applicable
Discharge Problem:
cellulitis of leg
Instructions: Cellulitis (Skin Infection), Adult (DC), BLOOD PRESSURE
Prescriptions:
New
doxycycline hyclate 100 mg capsule
100 mg PO ONCE Qty: 20 0RF
No Action
nitroglycerin 0.4 MG tablet, sublingual
0.4 mg sublingual [id number] PRN (Reason: chest pain) Qty: 25 3RF
trazodone 300 mg Tablet
300 mg PO HS Qty: 0
Patient Comments:
12/31/21 DOES NOT TAKE WITH PAIN MEDS, hold with oxycodone
ezetimibe 10 mg Tablet
10 mg PO HS
rosuvastatin 40 MG tablet
40 mg PO HS
metoprolol succinate 25 mg Tablet Extended Release 24 Hr
12.5 mg PO HS
fenofibrate nanocrystallized 48 mg tablet
48 mg PO HS
aspirin 81 mg Tablet,Delayed Release (Dr/Ec)
81 mg PO HS
oxycodone 10 mg tablet
10 mg PO Q6HPRN PRN (Reason: mod pain)
warfarin 5 mg Tablet
2.5 mg PO WEFRSA
warfarin 5 mg Tablet
5 mg PO SUMOTUTH
gabapentin 300 mg capsule
300 mg PO DAILY
hydromorphone 2 mg Tablet
2 mg PO Q4HPRN PRN (Reason: for severe pain) Qty: 7 0RF
Referrals:
UNKNOWN - PT DOES,NOT KNOW [Unknown Provider] -
Activity Restrictions/Additional Instructions:
As discussed start doxycycline tomorrow 1 tablet twice daily (every 12 hours) for the next 10 days.
Closely follow-up with your surgeon as scheduled for wound check. Return if any worsening of symptoms include increasing pain redness red streaking fever or chills.
Interventions
Interventions:
*Risk Screen - Suicide Last Done: 08/25/24 17:02
*General Assessment Last Done: 08/25/24 18:54
*Neglect/Abuse Screening Last Done: 08/25/24 17:02
*ED- Fall Risk Assessment Last Done: 08/25/24 18:54
ED-Skin Assessment Last Done: 08/25/24 18:55
Discharge Date and Time
Print Language: MAORI
[2024-08-25 20:41] LABS: % Basophils 0.6 % (0-2); % Eosinophils 2.8 % (0-6); % Immature Granulocytes 0.7 % (0-0.5); % Lymphocytes 23.1 % (20.5-51.1); % Monocytes 8.7 % (1.7-9.3); % Neutrophils 64.1 % (42.2-75.2); Absolute Basophils 0.1 10^3/uL (0-0.2); Absolute Eosinophils 0.3 10^3/uL (0-0.7); Absolute Immature Granulocytes 0.1 10^3/uL (0-0.05); Absolute Lymphocytes 2.5 10^3/uL (1.2-3.4); Absolute Monocytes 0.9 10^3/uL (0.1-0.6); Absolute Neutrophils 6.9 10^3/uL (1.4-6.5); Hematocrit 28.2 % (37.0-47.0); Hemoglobin 9.1 g/dL (12.0-16.0); Mean Corp Hgb Conc. 32.3 g/dL (33.0-37.0); Mean Corpuscular Hgb 30.8 pg (27.0-31.0); Mean Corpuscular Volume 95.6 fL (81.0-99.0); Mean Platelet Volume 8.9 fL (7.4-10.4); Nucleated Red Blood Cells % 0 %; Platelet Count 450 10^3/uL (130-400); Red Blood Cell Count 2.95 10^6/uL (4.20-5.40); Red Cell Dist. Width 15.1 % (11.5-14.5); White Blood Cell Count 10.8 10^3/uL (4.8-10.8)
[2024-08-25 20:55] LABS: Blood Urea Nitrogen 18 mg/dl (7-17); Calcium 8.7 mg/dl (8.4-10.2); Carbon Dioxide 26 mmol/L (22-30); Chloride 107 mmol/L (98-107); Estimated Creatinine Clearance 110 ml/min; Glucose 94 mg/dl (70-99); Sodium 139 mmol/L (135-145); eGFR > 60.00
[2024-08-25] MEDS: VANCOCIN 540 MG IV (23:17)
== END 2024-08-26 01:21 | disposition home or self-care (01) ==
LOC: EMR 16:58
PROVIDERS: Nurse Practitioner; EMERGENCY PHYSICIAN Emergency Medicine; FAMILY PHYSICIAN Family Medicine
DX: L03.116 Cellulitis of left lower limb (principal); I25.10 Atherosclerotic heart disease of native coronary artery without angina pectoris; I48.91 Unspecified atrial fibrillation; I10 Essential (primary) hypertension; E78.00 Pure hypercholesterolemia, unspecified; F41.8 Other specified anxiety disorders; I42.9 Cardiomyopathy, unspecified; M79.7 Fibromyalgia; Z79.01 Long term (current) use of anticoagulants; Z82.49 Family history of ischemic heart disease and other diseases of the circulatory system; Z95.5 Presence of coronary angioplasty implant and graft; Z98.51 Tubal ligation status
CPT/HCPCS: 99284; 80048; 85025

== ENCOUNTER 2024-11-04 16:12 | Emergency (ER) | payer OTHER, SELFPAY ==
[2024-11-04 16:14] VITALS: BP 134/75
[2024-11-04 16:28] LABS: Hematocrit 34.9 % (37.0-47.0); Hemoglobin 11.2 g/dL (12.0-16.0); Mean Corp Hgb Conc. 32.1 g/dL (33.0-37.0); Mean Corpuscular Volume 86.8 fL (81.0-99.0); Nucleated Red Blood Cells % 0 %; Platelet Count 325 10^3/uL (130-400); Red Cell Dist. Width 15.2 % (11.5-14.5)
[2024-11-04 16:39] LABS: INR 3.16; PT 32.3 Sec (11.4-14.6)
[2024-11-04] MEDS: LET TOPICAL ANESTHETIC GEL 3 ML TOPICAL (17:29)
[2024-11-04] MEDS: ROXICODONE 5 MG PO (17:51)
--- NOTE | 2024-11-04 18:17 | ED.GENMED ---
History of Present Illness
General
Chief Complaint: Post Operative Problem(s)
Time Seen by Provider: 11/04/24 16:54
History of Present Illness
History of Present Illness:
59-year-old female with history of chronic pain, hypertension, hyperlipidemia, coronary artery disease status post MD, A-fib on Coumadin, and chronic wounds of lower extremities presents the emergency department for evaluation of bleeding to the
left lower leg. She had a biopsy earlier in the day performed to the left lower leg and noted increased bleeding when she returned home. She did not hold her blood thinners in anticipation of this. Bleeding is now controlled.
Past History
Past History
ED Past Medical History: Arrthythmia (Atrial fibrillation), CAD, Fibromyalgia, HTN, Hypercholesterolemia, [place] (non-ST), Psychiatric (Depression, anxiety, history of drug overdose September 2008) and Other (right lower extremity hematoma with cellulitis
November 2021, cardiomyopathy, migraine, kidney infection)
ED Past Surgical History: Cardiac (CARD CATH WITH STENTS 03/07/2008,02/03 2011,2012,08/12), Gynecological (Tubal ligation 1994) and Orthopedic (Orthopedic)
Social History
Tobacco: Smoker (Quit 2017)
Alcohol: Occasional
Drug: None
Personal:
Living: with family
Employment: Not employed
Family History
Family History: CAD
Review of Systems
Review of Systems
Allergies reviewed?: Yes
All Other Systems: ROS reviewed and negative except as documented in HPI and ROS
Phy Exam
Physical Exam
Physical Exam:
GEN: Well appearing, NAD, WDWN
HEENT: Oral mucosa moist, no scleral icterus
Cardiac: Regular rate
Lung: No respiratory distress, no tachypnea
MSK: No gross deformity or injuries
Skin: Good color, no pallor or jaundice. Severe superficial ulcerations to the left lower leg anteriorly and laterally associated with severe lymphedema. No evidence of active bleeding however site of recent bleeding is noted to the left lateral
lower leg
Neuro: AO x3, moves all extremities freely
Psych: Calm, cooperative
Course
Orders/Labs/Results
Orders:
Orders
11/04/24 16:21
Complete Blood Count/With Diff Urgent
PT/INR [Prothrombin Time] Urgent
11/04/24 17:24
Lidocaine/Epinephrine/Tetracai [Let Topical Anesthetic Gel] 3 ml TOPICAL NOW STA
11/04/24 17:49
Oxycodone [Roxicodone] 5 mg PO NOW STA
Abnormal Lab Results
11/04/24
16:21
WBC 12.1 H 10^3/uL
(4.8-10.8)
RBC 4.02 L 10^6/uL
(4.20-5.40)
Hgb 11.2 L g/dL
(12.0-16.0)
Hct 34.9 L %
(37.0-47.0)
MCHC 32.1 L g/dL
(33.0-37.0)
RDW 15.2 H %
(11.5-14.5)
Abs Immat Gran (auto) 0.1 H 10^3/uL
(0-0.05)
Absolute Neuts (auto) 8.3 H 10^3/uL
(1.4-6.5)
Absolute Monos (auto) 0.9 H 10^3/uL
(0.1-0.6)
PT 32.3 H Sec
(11.4-14.6)
11/04/24 16:21
Vital Signs
Initial and Last Documented VS:
Initial Vital Signs
Temp Pulse Resp BP Pulse Ox
98.8 F 62 16 134/75 98
11/04/24 16:14 11/04/24 16:14 11/04/24 16:14 11/04/24 16:14 11/04/24 16:14
Last Documented Vital Signs
Temp Pulse Resp BP Pulse Ox
98.8 F 62 16 134/75 98
11/04/24 16:14 11/04/24 16:14 11/04/24 16:14 11/04/24 16:14 11/04/24 18:18
MDM/Problems Addressed
MDM/Problems Addressed:
No evidence of bleeding in the ED. A collagen hemostat dressing was applied to the site of prior bleeding with oil emulsion dressings and Kerlix wrap. Prescribed pain medicine for breakthrough pain symptoms.
*Pulse Oximetry
SaO2: 98
Oxygen Mode of Delivery: Room air
Patient hypoxic: no
*Critical Care Note
Total Time (30-74mins, 75-104mins- exclusive of procedures): Not Applicable
ED Attending Note
-
Portions of this chart may have been created with voice recognition software.� Occasional wrong word or��sound alike� substitutions may have occurred due to the inherent limitations of voice recognition software.
Discharge Plan
Departure
Patient Disposition: Home (Routine Discharge)
Date of Disposition: 11/04/24
Time of Disposition: 18:18
Patient with high blood pressure during this ER visit?: No
Discharge Problem:
Bleeding
Instructions: Wound Care (DC)
Prescriptions:
New
oxycodone 10 mg tablet
10 mg PO Q8H PRN (Reason: Pain) Qty: 10 0RF
No Action
nitroglycerin 0.4 MG tablet, sublingual
0.4 mg sublingual [id number] PRN (Reason: chest pain) Qty: 25 3RF
trazodone 300 mg Tablet
300 mg PO HS Qty: 0
Patient Comments:
12/31/21 DOES NOT TAKE WITH PAIN MEDS, hold with oxycodone
ezetimibe 10 mg Tablet
10 mg PO HS
rosuvastatin 40 MG tablet
40 mg PO HS
metoprolol succinate 25 mg Tablet Extended Release 24 Hr
12.5 mg PO HS
fenofibrate nanocrystallized 48 mg tablet
48 mg PO HS
aspirin 81 mg Tablet,Delayed Release (Dr/Ec)
81 mg PO HS
oxycodone 10 mg tablet
10 mg PO Q6HPRN PRN (Reason: mod pain)
warfarin 5 mg Tablet
2.5 mg PO WEFRSA
warfarin 5 mg Tablet
5 mg PO SUMOTUTH
gabapentin 300 mg capsule
300 mg PO DAILY
hydromorphone 2 mg Tablet
2 mg PO Q4HPRN PRN (Reason: for severe pain) Qty: 7 0RF
doxycycline hyclate 100 mg capsule
100 mg PO ONCE Qty: 20 0RF
Referrals:
Parveen Haynes MD [Family Provider, Family Practice]
Activity Restrictions/Additional Instructions:
Foam dressing should adhere to the wound however if it does not that indicates there was not enough bleeding to create a clot. Please dress and rinse each day as detailed by your specialist
Interventions
Interventions:
*Risk Screen - Suicide Last Done: 11/04/24 16:14
*Neglect/Abuse Screening Last Done: 11/04/24 16:14
*ED- Fall Risk Assessment Last Done: 11/04/24 17:03
*ED COVID-19 Vaccine History Last Done: 11/04/24 17:03
*Nursing Disposition Last Done: 11/04/24 18:33
ED-Skin Assessment Last Done: 11/04/24 16:56
Discharge Date and Time
Discharge Date/Time: 11/04/24 18:34
Print Language: HUNGARIAN
== END 2024-11-04 18:34 | disposition home or self-care (01) ==
LOC: EMR 16:12
PROVIDERS: Emergency Medicine; EMERGENCY PHYSICIAN Emergency Medicine; FAMILY PHYSICIAN Family Medicine
DX: L76.22 Postprocedural hemorrhage of skin and subcutaneous tissue following other procedure (principal); Y84.8 Other medical procedures as the cause of abnormal reaction of the patient, or of later complication, without mention of misadventure at the time of the procedure; L97.829 Non-pressure chronic ulcer of other part of left lower leg with unspecified severity; I89.0 Lymphedema, not elsewhere classified; E78.00 Pure hypercholesterolemia, unspecified; G89.29 Other chronic pain; I10 Essential (primary) hypertension; I25.10 Atherosclerotic heart disease of native coronary artery without angina pectoris; I25.2 Old myocardial infarction; I42.9 Cardiomyopathy, unspecified; I48.91 Unspecified atrial fibrillation; Z79.01 Long term (current) use of anticoagulants; Z95.5 Presence of coronary angioplasty implant and graft; Z87.891 Personal history of nicotine dependence
CPT/HCPCS: 99283; 11104; 85025; 85610; 88305; 99214

== ENCOUNTER → 2024-11-11 13:22 | Outpatient (REF) | payer OTHER, SELFPAY | LOC: WOUND 13:22 | PROVIDERS: ATTENDING PHYSICIAN Surgery; FAMILY PHYSICIAN Family Medicine | DX: L97.222 Non-pressure chronic ulcer of left calf with fat layer exposed (principal); L88 Pyoderma gangrenosum; I48.0 Paroxysmal atrial fibrillation; I25.5 Ischemic cardiomyopathy; Z79.01 Long term (current) use of anticoagulants | CPT/HCPCS: 99213 ==

== ENCOUNTER → 2024-11-25 14:09 | Outpatient (REF) | payer OTHER, SELFPAY | LOC: WOUND 14:09 | PROVIDERS: ATTENDING PHYSICIAN Surgery; FAMILY PHYSICIAN Family Medicine | DX: L97.222 Non-pressure chronic ulcer of left calf with fat layer exposed (principal); L88 Pyoderma gangrenosum; I48.0 Paroxysmal atrial fibrillation; I25.5 Ischemic cardiomyopathy; Z79.01 Long term (current) use of anticoagulants | CPT/HCPCS: 99213 ==

== ENCOUNTER 2024-12-17 22:17 | Emergency (ER) | payer OTHER, SELFPAY ==
[2024-12-17 22:19] VITALS: BP 168/89
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
[2024-12-17 23:07] VITALS: BMI 33.0
[2024-12-17 23:26] LABS: Hematocrit 36.6 % (37.0-47.0); Hemoglobin 11.7 g/dL (12.0-16.0); Mean Corp Hgb Conc. 32.0 g/dL (33.0-37.0); Mean Corpuscular Volume 84.1 fL (81.0-99.0); Nucleated Red Blood Cells % 0 %; Platelet Count 363 10^3/uL (130-400); Red Cell Dist. Width 17.7 % (11.5-14.5)
[2024-12-17] MEDS: DILAUDID 0.5 MG IV (23:37)
[2024-12-17 23:41] VITALS: BP 139/87
[2024-12-17 23:51] LABS: Troponin I < 0.012 ng/ml
[2024-12-17 23:55] LABS: Blood Urea Nitrogen 20 mg/dl (7-17); Calcium 9.4 mg/dl (8.4-10.2); Carbon Dioxide 30 mmol/L (22-30); Chloride 104 mmol/L (98-107); Estimated Creatinine Clearance 82 ml/min; Glucose 112 mg/dl (70-99); Sodium 139 mmol/L (135-145); eGFR > 60.00
[2024-12-18] VITALS: BP 130/60
[2024-12-18 00:15] LABS: INR 2.39; PT 26.1 Sec (11.4-14.6)
[2024-12-18 01:00] VITALS: BP 119/63
[2024-12-18] MEDS: DILAUDID 0.5 MG IV (01:55)
[2024-12-18 02:00] VITALS: BP 121/68
== END 2024-12-18 03:20 | disposition home or self-care (01) ==
LOC: EMR 22:17
PROVIDERS: EMERGENCY PHYSICIAN Student in an Organized Health Care Education/Training Program; FAMILY PHYSICIAN Family Medicine
DX: S40.022A Contusion of left upper arm, initial encounter (principal); S20.219A Contusion of unspecified front wall of thorax, initial encounter; W19.XXXA Unspecified fall, initial encounter; I48.91 Unspecified atrial fibrillation; E78.00 Pure hypercholesterolemia, unspecified; I10 Essential (primary) hypertension; I25.10 Atherosclerotic heart disease of native coronary artery without angina pectoris; M79.7 Fibromyalgia; I42.9 Cardiomyopathy, unspecified; I21.9 Acute myocardial infarction, unspecified; F32.A Depression, unspecified; F41.9 Anxiety disorder, unspecified; Z79.01 Long term (current) use of anticoagulants; Z82.49 Family history of ischemic heart disease and other diseases of the circulatory system; Z95.5 Presence of coronary angioplasty implant and graft; Z98.51 Tubal ligation status
CPT/HCPCS: 99284; 96374; 96376; 71101; 71260; 80048; 84484; 85025; 85610; 93005; Q9967

== ENCOUNTER → 2025-01-17 13:19 | Outpatient (REF) | payer OTHER, SELFPAY | LOC: WOUND 13:19 | PROVIDERS: ATTENDING PHYSICIAN Surgery; FAMILY PHYSICIAN Family Medicine | DX: L97.222 Non-pressure chronic ulcer of left calf with fat layer exposed (principal); L88 Pyoderma gangrenosum; I48.0 Paroxysmal atrial fibrillation; I25.5 Ischemic cardiomyopathy; Z79.01 Long term (current) use of anticoagulants | CPT/HCPCS: 99213 ==

== ENCOUNTER → 2025-02-07 13:59 | Outpatient (REF) | payer OTHER, SELFPAY | LOC: WOUND 13:59 | PROVIDERS: ATTENDING PHYSICIAN Surgery; FAMILY PHYSICIAN Family Medicine | DX: L97.222 Non-pressure chronic ulcer of left calf with fat layer exposed (principal); L88 Pyoderma gangrenosum; I48.0 Paroxysmal atrial fibrillation; I25.5 Ischemic cardiomyopathy; Z79.01 Long term (current) use of anticoagulants | CPT/HCPCS: 99213 ==

== ENCOUNTER → 2025-02-21 13:56 | Outpatient (REF) | payer OTHER, SELFPAY | LOC: WOUND 13:56 | PROVIDERS: ATTENDING PHYSICIAN Surgery; FAMILY PHYSICIAN Family Medicine | DX: L97.222 Non-pressure chronic ulcer of left calf with fat layer exposed (principal); L88 Pyoderma gangrenosum; I48.0 Paroxysmal atrial fibrillation; I25.5 Ischemic cardiomyopathy; Z79.01 Long term (current) use of anticoagulants | CPT/HCPCS: 99213 ==

== ENCOUNTER 2025-03-09 13:52 | Outpatient (REF) | payer OTHER, SELFPAY | END 2025-03-09 23:59 | disposition home or self-care (01) | LOC: WOUND 13:52 | PROVIDERS: ATTENDING PHYSICIAN Surgery; FAMILY PHYSICIAN Family Medicine | DX: L97.222 Non-pressure chronic ulcer of left calf with fat layer exposed (principal); L88 Pyoderma gangrenosum; I48.0 Paroxysmal atrial fibrillation; I25.5 Ischemic cardiomyopathy; Z79.01 Long term (current) use of anticoagulants | CPT/HCPCS: 99213 ==

== ENCOUNTER 2025-03-22 01:40 | Inpatient (IN) | payer OTHER, SELFPAY ==
[2025-03-21 22:49] VITALS: BP 120/82; BMI 32.0
[2025-03-21 23:12] LABS: Hematocrit 39.2 % (37.0-47.0); Hemoglobin 12.7 g/dL (12.0-16.0); Mean Corp Hgb Conc. 32.4 g/dL (33.0-37.0); Mean Corpuscular Volume 87.5 fL (81.0-99.0); Nucleated Red Blood Cells % 0 %; Platelet Count 328 10^3/uL (130-400); Red Cell Dist. Width 18.6 % (11.5-14.5)
--- NOTE | 2025-03-21 23:25 | ED.GENMED ---
History of Present Illness
<Alley Long RATE AND COST ANALYST - Last Filed: 03/23/25 07:10>
General
Chief Complaint: Chest Pain
Source: patient
Exam Limitations: none
Time Seen by Provider: 03/21/25 23:21
Nursing documentation reviewed up to this point in time: agreed with
History of Present Illness
History of Present Illness:
60 yo female here with significant mid chest pain that came on suddenly about an hour ago. EMS gave NTG spray x 3 with little relief. Denies SOB, diaphoresis, n/v. Just now during initial exam, pain started radiating up to right neck and jaw and
right scapular areas.
w h/o DM angina, A-fib on Coumadin, chest pain, CAD, HTN, HLD, ND, pyoderma gangrenosum with current wound on left lower leg followed by wound care, anxiety/depression, multiple cardiac stents, last one 2022 showing stable CAD, modestly improved
from one a year prior.
Has had GERD in past, non recently, did eat pizza tonight which she doesn't usually do. Takes nothing for GERD presently
Past History
<Alley Long RATE AND COST ANALYST - Last Filed: 03/23/25 07:10>
Past History
ED Past Medical History: Arrthythmia (Atrial fibrillation), CAD, Fibromyalgia, HTN, Hypercholesterolemia, ND (non-ST), Psychiatric (Depression, anxiety, history of drug overdose September 2008) and Other (right lower extremity hematoma with cellulitis
November 2021, cardiomyopathy, migraine, kidney infection)
ED Past Surgical History: Cardiac (CARD CATH WITH STENTS 03/07/2008,02/03 2011,2012,08/12), Gynecological (Tubal ligation 1994) and Orthopedic (Orthopedic)
Social History
Tobacco: Smoker (occasional)
Alcohol: Occasional
Drug: None
Personal:
Living: with family
Employment: Not employed
Family History
Family History: CAD
Review of Systems
<Alley V. Day, RATE AND COST ANALYST - Last Filed: 03/23/25 07:10>
Review of Systems
Allergies reviewed?: Yes
All Other Systems: ROS reviewed and negative except as documented in HPI and ROS
Constitutional: Denies fever or chills
Respiratory: Denies cough or trouble breathing
Cardiac: Reports chest pain; Denies diaphoresis or palpitations
ABD/GI: Denies abdominal pain, nausea or vomiting
: Denies dysuria
Musculoskeletal: Reports no symptoms
Skin: Reports no symptoms
Neurological: Reports no symptoms
Phy Exam
<Alley Long NP - Last Filed: 03/23/25 07:10>
Physical Exam
Physical Exam:
GENERAL: No acute distress. A&Ox3.
CONSTITUTIONAL: Afebrile.
EYES: clear, conjunctivae normal
ENMT: moist mucus membranes, Pharynx nl
RESPIRATORY: Regular respirations, nonlabored, lungs clear.
CARDIOVASCULAR: Regular rate and rhythm, no murmurs, no rubs.
GI: Soft, nontender, normal BS
MUSCULOSKELETAL: Moves with ease. Well perfused.
SKIN: Warm, dry, pink
PSYCH: Normal mood and affect. Well kept, interactive and appropriate
NEUROLOGIC: Awake, alert and oriented. No focal neurological deficits
Scores
<Alley Long NP - Last Filed: 03/23/25 07:10>
Heart Score for Chest Pain Patients
STEMI patient?: No
History: Moderately Suspicious
ECG: Normal
Age: >45 - <65 years
Risk Factors: >/= 3 Risk Factors or History of CAD
Troponin: </= Normal Limit
Heart Score for Chest Pain Patients: 4
Heart Score Risk: 20.3% MACE over next 6 weeks
<Petros Gamino MD - Last Filed: 03/22/25 19:51>
Heart Score for Chest Pain Patients
Heart Score for Chest Pain Patients: 4
Heart Score Risk: 20.3% MACE over next 6 weeks
Course
<Alley Long NP - Last Filed: 03/23/25 07:10>
Orders/Labs/Results
Orders:
Orders
03/21/25 22:48
Electrocardiogram (*1) Urgent
Reason for Study: Chest Pain
Cardiac Monitoring- Treatment ONCE
EKG- Treatment ONCE
IV Insert/Care/Rem.- Treatment PRN
O2 Therapy [RESP] Urgent
Titrate/Wean O2 to maintain O2 sat greater than (%): 90
Special Instructions: Maintain sats >/=90%
Pulse Ox/spot Check [RESP] Urgent
Quantity: 1
Special Instructions: ON ROOM AIR
03/21/25 23:04
Complete Blood Count/With Diff Urgent
Comprehensive Metabolic Panel Urgent
Troponin I Urgent
03/21/25 23:30
Mag Hydrox/Al Hydrox/Simeth [Maalox] 30 ml Phenobarb/Hyoscy/Atropine/Scop [] 10 ml PO NOW
03/21/25 23:42
Mag Hydrox/Al Hydrox/Simeth [Maalox] 30 ml .ROUTE .STK-MED ONE
Phenobarb/Hyoscy/Atropine/Scop [] 10 ml .ROUTE .STK-MED ONE
03/21/25 23:43
PTT Urgent
Prothrombin Time Urgent
03/21/25 23:52
Morphine Sulfate 4 mg IV NOW STA
Ondansetron Injectable [Zofran] 4 mg IV NOW STA
03/22/25 00:14
CR Chest Portable - 1 View Urgent
Comment:
Reason For Exam: chest pain
Reason Study Needs to be Portable: Patient Unstable
03/22/25 00:35
Heparin 4,000 units IV NOW STA
Heparin 4,000 units IV NOW STA
Nursing to Place Non Medication Order As Directed
Physician Order: PTT 6 hours after initial start of Heparin infusion
Above order entered?: Yes
03/22/25 00:40
Add On- LAB Urgent
Tests Added?: PTT
03/22/25 00:45
Heparin 52960 Units/250 ml 25,000 units in 250 ml IV PER PROTOCOL
Weight to be used for heparin protocol in kilograms (kg):: 87.2
Protocol:: Cardiac Tx/Acute Coronary
PTT Goal Range to be used:: PTT 73 to 111 seconds
Order type:: Initial
INITIAL Infusion Dose (UNITS/KG/hr) & then follow protocol:: 15 units/kg/hr
Infusion Dose in UNITS/hr & then follow protocol (UNITS/hr):: 1,300
INFUSION RATE in mL/hr & then follow protocol (mL/hr):: 13
PTT less than or equal to 64 seconds:: Increase rate by 200 units/hr (+ 2 mL/hr)
PTT 64.1 to 72.9 seconds:: Increase rate by 100 units/hr (+ 1 mL/hr)
PTT 73 to 111 seconds:: Target Range. No change in rate.
PTT 111.1 to 130.9 seconds:: Decrease rate by 100 units/hr (- 1 mL/hr)
PTT 131 to 199.9 seconds:: HOLD for 1 hr. Then decrease rate by 200 units/hr (- 2 mL/hr)
PTT greater than or equal to 200 seconds:: HOLD for 2 hrs & Notify Provider. Then decrease by 200 units/hr (-
2 mL/hr)
Lab follow-up:: Each change, PTT q6h until 2 consecutive are therapeutic. Then PTT
daily.
03/22/25 01:09
0.9% Sodium Chloride 250 ml [Nss] 250 ml IV BOLUS
03/22/25 01:29
Admit/Transfer Patient As Directed
Co-Sign Provider:
Level of Care: Inpatient admission
Assign to:: IVU
Physician / Group: Martin
Diagnosis: NSTEMI
Reason for Hospitalization: NSTEMI
Expected length of stay greater than two midnights?: Yes
ELOS- Estimated Length of Stay in days: 2
I certify the patient meets the requirements for IP care: Yes
PRN Pain Medication Management As Directed
May give lesser potent ordered pain med per pt: Yes
preference::
Protocol:: Medication orders for pain may be administered in a
manner that supports deferring to patient preference
when the pt is:
- Requesting an ordered lesser potent pain medication.
Least to most potent pain medications are defined
as: acetaminophen < NSAID < tramadol < opioids
(morphine, oxycodone, hydromorphone).
- Requesting a lesser dose of the same medication IF
ORDERED.
- Requesting a less intrusive route of administration
if both routes are prescribed by the provider (PO <
IV).
03/22/25 01:31
Code Status As Directed
Resuscitation Status: Full Code
03/22/25 01:40
0.9% Sodium Chloride 500 ml [Nss] 500 ml IV BOLUS
03/22/25 04:15
Mag Hydrox/Al Hydrox/Simeth [Maalox] 30 ml PO QIDPRN PRN
Nitroglycerin 100 mg/250 ml [Nitroglycerin Premix] 100 mg in 250 ml IV PER PROTOCOL
Initial dose in mcg/min, then titrate:: 5
Titrate to keep:: Chest Pain Free
Titrate by mcg/min:: 5 mcg/min, may increase by 10 mcg/min if dose > 20 mcg/min
Frequency of titrations (minutes):: 3-5 minutes
Maximum dose in mcg/min:: 200
Begin to taper infusion when:: Other
Begin to taper infusion when (other):: when patient has remained at goal for 24 hours
Taper by mcg/min:: 5 mcg/min
Frequency of taper (minutes) if patient maintains goal:: 30
Taper to off?: Yes
If infusion off & no longer maintaining goal:: Contact Provider
Additional Taper Instructions:: Discontinue if SBP < 90 or MAP < 65
03/22/25 04:15
Echo 2D MMode Color/Doppler Routine
Reason for Study: chest pain
CARDIOLOGY CONSULT Routine
Consulting Provider: Marcello Carmen
Was physician already notified: Yes
Heparin Protocol- PTT Orders As Directed
PTT per Heparin protocol: -Obtain CBC and baseline PTT - if not already collected.
-Obtain PTT 6 hours from start of infusion. Then, every 6 hours until 2 consecutive
PTT's are therapeutic. Then, PTT Daily.
-With each rate change, obtain PTT every 6 hours until 2 consecutive PTT's are
therapeutic. Then, PTT Daily.
Activity As Directed
Activity Level: With Assistance
ECG as needed As Directed
ECG as needed for:: Chest Pain
Additional Instructions:: with chest pain x 2 episodes.
INT (Intravenous Needle Therapy) As Directed
Comment: maintain peripheral IV access
Intake/ Output As Directed
Frequency: Per unit guidelines
Notify MD As Directed
Notify physician if: PTT is greater than or equal to 200.
Vital Signs As Directed
Frequency: q4h
Weight As Directed
Frequency: Daily
03/22/25 Breakfast
NPO
Allow oral meds: Yes
Allow clear liquids: Sips of Clears
Ondansetron Injectable [Zofran] 4 mg IV Q6HPRN PRN
03/22/25 08:00
Clobetasol Propionate [Clobetasol Propionate 0.05% Cream] 1 applic TOPICAL DAILY
Gabapentin [Neurontin] 300 mg PO DAILY
03/22/25 08:55
Basic Metabolic Panel IN AM
Cardiovascular Evaluation IN AM
Complete Blood Count/No Diff IN AM
Glycohemoglobin (HgbA1c) IN AM
Troponin I Q3H
Comment: at admit & Q3H for 3 total including ED draws, obtain ECG with each level
03/22/25 22:00
Aspirin Low Dose EC [Aspir Low (Enteric Coated)] 81 mg PO HS
Ezetimibe [Zetia] 10 mg PO HS
Fenofibrate [Tricor] 48 mg PO HS
Rosuvastatin Calcium [Crestor] 40 mg PO HS
03/24/25 06:00
Complete Blood Count/No Diff Q2D
Comment: notify provider: Platelet count < 130,000 or decrease by 50% from baseline
03/26/25 06:00
Complete Blood Count/No Diff Q2D
Comment: notify provider: Platelet count < 130,000 or decrease by 50% from baseline
03/28/25 06:00
Complete Blood Count/No Diff Q2D
Comment: notify provider: Platelet count < 130,000 or decrease by 50% from baseline
03/30/25 06:00
Complete Blood Count/No Diff Q2D
Comment: notify provider: Platelet count < 130,000 or decrease by 50% from baseline
04/01/25 06:00
Complete Blood Count/No Diff Q2D
Comment: notify provider: Platelet count < 130,000 or decrease by 50% from baseline
04/03/25 06:00
Complete Blood Count/No Diff Q2D
Comment: notify provider: Platelet count < 130,000 or decrease by 50% from baseline
04/05/25 06:00
Complete Blood Count/No Diff Q2D
Comment: notify provider: Platelet count < 130,000 or decrease by 50% from baseline
04/07/25 06:00
Complete Blood Count/No Diff Q2D
Comment: notify provider: Platelet count < 130,000 or decrease by 50% from baseline
Abnormal Lab Results
03/21/25 03/21/25
23:04 23:43
WBC 12.7 H 10^3/uL
(4.8-10.8)
MCHC 32.4 L g/dL
(33.0-37.0)
RDW 18.6 H %
(11.5-14.5)
Abs Immat Gran (auto) 0.1 H 10^3/uL
(0-0.05)
Absolute Neuts (auto) 8.8 H 10^3/uL
(1.4-6.5)
Absolute Monos (auto) 1.2 H 10^3/uL
(0.1-0.6)
Lymphocytes % 19.3 L %
(20.5-51.1)
PT 23.4 H Sec
(11.4-14.6)
APTT 39.1 H Sec
(23.4-35.0)
Carbon Dioxide 32 H mmol/L
(22-30)
BUN 20 H mg/dl
(7-17)
Glucose 113 H mg/dl
(70-99)
Troponin I 0.098 H* ng/ml
03/21/25 23:04
03/21/25 23:04
Vital Signs
Initial and Last Documented VS:
Initial Vital Signs
Temp Pulse Resp BP Pulse Ox
98.4 F 74 18 120/82 96
03/21/25 22:49 03/21/25 22:49 03/21/25 22:49 03/21/25 22:49 03/21/25 22:49
Last Documented Vital Signs
Temp Pulse Resp BP Pulse Ox
98.3 F 79 18 91/59 98
03/23/25 04:48 03/23/25 04:45 03/23/25 04:48 03/23/25 04:38 03/23/25 04:48
Syrup Blender consulted with Physician
Syrup Blender consulted with physician?: Yes
Name of Physician Consulted: Stevenson
<Petros Gamino MD - Last Filed: 03/22/25 19:51>
Orders/Labs/Results
Orders:
Orders
03/21/25 22:48
Electrocardiogram (*1) Urgent
Reason for Study: Chest Pain
Cardiac Monitoring- Treatment ONCE
EKG- Treatment ONCE
IV Insert/Care/Rem.- Treatment PRN
O2 Therapy [RESP] Urgent
Titrate/Wean O2 to maintain O2 sat greater than (%): 90
Special Instructions: Maintain sats >/=90%
Pulse Ox/spot Check [RESP] Urgent
Quantity: 1
Special Instructions: ON ROOM AIR
03/21/25 23:04
Complete Blood Count/With Diff Urgent
Comprehensive Metabolic Panel Urgent
Troponin I Urgent
03/21/25 23:30
Mag Hydrox/Al Hydrox/Simeth [Maalox] 30 ml Phenobarb/Hyoscy/Atropine/Scop [] 10 ml PO NOW
03/21/25 23:42
Mag Hydrox/Al Hydrox/Simeth [Maalox] 30 ml .ROUTE .STK-MED ONE
Phenobarb/Hyoscy/Atropine/Scop [] 10 ml .ROUTE .STK-MED ONE
03/21/25 23:43
PTT Urgent
Prothrombin Time Urgent
03/21/25 23:52
Morphine Sulfate 4 mg IV NOW STA
Ondansetron Injectable [Zofran] 4 mg IV NOW STA
03/22/25 00:14
CR Chest Portable - 1 View Urgent
Comment:
Reason For Exam: chest pain
Reason Study Needs to be Portable: Patient Unstable
03/22/25 00:35
Heparin 4,000 units IV NOW STA
Heparin 4,000 units IV NOW STA
Nursing to Place Non Medication Order As Directed
Physician Order: PTT 6 hours after initial start of Heparin infusion
Above order entered?: Yes
03/22/25 00:40
Add On- LAB Urgent
Tests Added?: PTT
03/22/25 00:45
Heparin 56752 Units/250 ml 25,000 units in 250 ml IV PER PROTOCOL
Weight to be used for heparin protocol in kilograms (kg):: 87.2
Protocol:: Cardiac Tx/Acute Coronary
PTT Goal Range to be used:: PTT 73 to 111 seconds
Order type:: Initial
INITIAL Infusion Dose (UNITS/KG/hr) & then follow protocol:: 15 units/kg/hr
Infusion Dose in UNITS/hr & then follow protocol (UNITS/hr):: 1,300
INFUSION RATE in mL/hr & then follow protocol (mL/hr):: 13
PTT less than or equal to 64 seconds:: Increase rate by 200 units/hr (+ 2 mL/hr)
PTT 64.1 to 72.9 seconds:: Increase rate by 100 units/hr (+ 1 mL/hr)
PTT 73 to 111 seconds:: Target Range. No change in rate.
PTT 111.1 to 130.9 seconds:: Decrease rate by 100 units/hr (- 1 mL/hr)
PTT 131 to 199.9 seconds:: HOLD for 1 hr. Then decrease rate by 200 units/hr (- 2 mL/hr)
PTT greater than or equal to 200 seconds:: HOLD for 2 hrs & Notify Provider. Then decrease by 200 units/hr (-
2 mL/hr)
Lab follow-up:: Each change, PTT q6h until 2 consecutive are therapeutic. Then PTT
daily.
03/22/25 01:09
0.9% Sodium Chloride 250 ml [Nss] 250 ml IV BOLUS
03/22/25 01:29
Admit/Transfer Patient As Directed
Co-Sign Provider:
Level of Care: Inpatient admission
Assign to:: IVU
Physician / Group: Martin
Diagnosis: NSTEMI
Reason for Hospitalization: NSTEMI
Expected length of stay greater than two midnights?: Yes
ELOS- Estimated Length of Stay in days: 2
I certify the patient meets the requirements for IP care: Yes
PRN Pain Medication Management As Directed
May give lesser potent ordered pain med per pt: Yes
preference::
Protocol:: Medication orders for pain may be administered in a
manner that supports deferring to patient preference
when the pt is:
- Requesting an ordered lesser potent pain medication.
Least to most potent pain medications are defined
as: acetaminophen < NSAID < tramadol < opioids
(morphine, oxycodone, hydromorphone).
- Requesting a lesser dose of the same medication IF
ORDERED.
- Requesting a less intrusive route of administration
if both routes are prescribed by the provider (PO <
IV).
03/22/25 01:31
Code Status As Directed
Resuscitation Status: Full Code
03/22/25 01:40
0.9% Sodium Chloride 500 ml [Nss] 500 ml IV BOLUS
03/22/25 04:15
Mag Hydrox/Al Hydrox/Simeth [Maalox] 30 ml PO QIDPRN PRN
Nitroglycerin 100 mg/250 ml [Nitroglycerin Premix] 100 mg in 250 ml IV PER PROTOCOL
Initial dose in mcg/min, then titrate:: 5
Titrate to keep:: Chest Pain Free
Titrate by mcg/min:: 5 mcg/min, may increase by 10 mcg/min if dose > 20 mcg/min
Frequency of titrations (minutes):: 3-5 minutes
Maximum dose in mcg/min:: 200
Begin to taper infusion when:: Other
Begin to taper infusion when (other):: when patient has remained at goal for 24 hours
Taper by mcg/min:: 5 mcg/min
Frequency of taper (minutes) if patient maintains goal:: 30
Taper to off?: Yes
If infusion off & no longer maintaining goal:: Contact Provider
Additional Taper Instructions:: Discontinue if SBP < 90 or MAP < 65
03/22/25 04:15
Echo 2D MMode Color/Doppler Routine
Reason for Study: chest pain
CARDIOLOGY CONSULT Routine
Consulting Provider: Marcello Carmen
Was physician already notified: Yes
Heparin Protocol- PTT Orders As Directed
PTT per Heparin protocol: -Obtain CBC and baseline PTT - if not already collected.
-Obtain PTT 6 hours from start of infusion. Then, every 6 hours until 2 consecutive
PTT's are therapeutic. Then, PTT Daily.
-With each rate change, obtain PTT every 6 hours until 2 consecutive PTT's are
therapeutic. Then, PTT Daily.
Activity As Directed
Activity Level: With Assistance
ECG as needed As Directed
ECG as needed for:: Chest Pain
Additional Instructions:: with chest pain x 2 episodes.
INT (Intravenous Needle Therapy) As Directed
Comment: maintain peripheral IV access
Intake/ Output As Directed
Frequency: Per unit guidelines
Notify MD As Directed
Notify physician if: PTT is greater than or equal to 200.
Vital Signs As Directed
Frequency: q4h
Weight As Directed
Frequency: Daily
03/22/25 Breakfast
NPO
Allow oral meds: Yes
Allow clear liquids: Sips of Clears
Ondansetron Injectable [Zofran] 4 mg IV Q6HPRN PRN
03/22/25 08:00
Clobetasol Propionate [Clobetasol Propionate 0.05% Cream] 1 applic TOPICAL DAILY
Gabapentin [Neurontin] 300 mg PO DAILY
03/22/25 08:55
Basic Metabolic Panel IN AM
Cardiovascular Evaluation IN AM
Complete Blood Count/No Diff IN AM
Glycohemoglobin (HgbA1c) IN AM
Troponin I Q3H
Comment: at admit & Q3H for 3 total including ED draws, obtain ECG with each level
03/22/25 22:00
Aspirin Low Dose EC [Aspir Low (Enteric Coated)] 81 mg PO HS
Ezetimibe [Zetia] 10 mg PO HS
Fenofibrate [Tricor] 48 mg PO HS
Rosuvastatin Calcium [Crestor] 40 mg PO HS
03/24/25 06:00
Complete Blood Count/No Diff Q2D
Comment: notify provider: Platelet count < 130,000 or decrease by 50% from baseline
03/26/25 06:00
Complete Blood Count/No Diff Q2D
Comment: notify provider: Platelet count < 130,000 or decrease by 50% from baseline
03/28/25 06:00
Complete Blood Count/No Diff Q2D
Comment: notify provider: Platelet count < 130,000 or decrease by 50% from baseline
03/30/25 06:00
Complete Blood Count/No Diff Q2D
Comment: notify provider: Platelet count < 130,000 or decrease by 50% from baseline
04/01/25 06:00
Complete Blood Count/No Diff Q2D
Comment: notify provider: Platelet count < 130,000 or decrease by 50% from baseline
04/03/25 06:00
Complete Blood Count/No Diff Q2D
Comment: notify provider: Platelet count < 130,000 or decrease by 50% from baseline
04/05/25 06:00
Complete Blood Count/No Diff Q2D
Comment: notify provider: Platelet count < 130,000 or decrease by 50% from baseline
04/07/25 06:00
Complete Blood Count/No Diff Q2D
Comment: notify provider: Platelet count < 130,000 or decrease by 50% from baseline
Abnormal Lab Results
03/21/25 03/21/25
23:04 23:43
WBC 12.7 H 10^3/uL
(4.8-10.8)
MCHC 32.4 L g/dL
(33.0-37.0)
RDW 18.6 H %
(11.5-14.5)
Abs Immat Gran (auto) 0.1 H 10^3/uL
(0-0.05)
Absolute Neuts (auto) 8.8 H 10^3/uL
(1.4-6.5)
Absolute Monos (auto) 1.2 H 10^3/uL
(0.1-0.6)
Lymphocytes % 19.3 L %
(20.5-51.1)
PT 23.4 H Sec
(11.4-14.6)
APTT 39.1 H Sec
(23.4-35.0)
Carbon Dioxide 32 H mmol/L
(22-30)
BUN 20 H mg/dl
(7-17)
Glucose 113 H mg/dl
(70-99)
Troponin I 0.098 H* ng/ml
03/21/25 23:04
03/21/25 23:04
Vital Signs
Initial and Last Documented VS:
Initial Vital Signs
Temp Pulse Resp BP Pulse Ox
98.4 F 74 18 120/82 96
03/21/25 22:49 03/21/25 22:49 03/21/25 22:49 03/21/25 22:49 03/21/25 22:49
Last Documented Vital Signs
Temp Pulse Resp BP Pulse Ox
98.3 F 79 18 91/59 98
03/23/25 04:48 03/23/25 04:45 03/23/25 04:48 03/23/25 04:38 03/23/25 04:48
<Alley Clemons Day, RATE AND COST ANALYST - Last Filed: 03/23/25 07:10>
MDM/Problems Addressed
Differential Diagnosis Includes:
angina, ND, GERD
MDM/Problems Addressed:
60 yo female here with significant mid chest pain that came on suddenly about an hour ago. EMS gave NTG spray x 3 with little relief. Denies SOB, diaphoresis, n/v. Just now during initial exam, pain started radiating up to right neck and jaw and
right scapular areas. States pain feels like previous ND. Last stent 2018 with no CP since until tonight.
w h/o DM angina, A-fib on Coumadin, chest pain, CAD, HTN, HLD, ND, pyoderma gangrenosum with current wound on left lower leg followed by wound care, anxiety/depression, multiple cardiac stents, last one 2022 showing stable CAD, modestly improved
from one a year prior.
Has had GERD in past, non recently, did eat pizza tonight which she doesn't usually do. Takes nothing for GERD presently
She did smoke a cigarette prior to coming.
EKG: NSR
CBC mild leukocytosis
CMP: No clinically significant abnormality
INR:2.07
Troponin: 0.[address]
Dr. Gamino in to see pt.
12:30 a.m.
Pain relieved with Morphine for a few minutes but is returning
Hospitalist and Cardiology Dr. Carmen notified of admission.
EKG #2 unchanged
1:00 a.m.
Bp 88/ holding NTG, giving NSS 250 bolus
<Alley Long NP - Last Filed: 03/23/25 07:10>
*Pulse Oximetry
SaO2: 96
Oxygen Mode of Delivery: Room air
Patient hypoxic: no
*EKG
EKG Intrepretation Date: 03/21/25
Interpretation: normal
Heart Rate: 73
Rate: normal
Rhythm: sinus
[place]: normal axis
Interval: normal interval
QRS Pattern: normal QRS
Ischemia: no ischemia
*Critical Care Note
Total Time (30-74mins, 75-104mins- exclusive of procedures): Not Applicable
ED Attending Note
<Alley Long NP - Last Filed: 03/23/25 07:10>
-
Portions of this chart may have been created with voice recognition software.� Occasional wrong word or��sound alike� substitutions may have occurred due to the inherent limitations of voice recognition software.
<Petros Gamino MD - Last Filed: 03/22/25 19:51>
ED Attending Note
Patient seen and examined by attending physician: Yes
ED Attending Note:
Patient with history of CAD, with multiple cardiac stents in place, along with atrial fibrillation on Coumadin, presents to ED secondary to sudden onset of midsternal chest pain, while playing guitar with her grandchildren, and approxi-1 hour prior
to arrival. Chest pain described as pressure, with radiation up to throat and jaw, as well as back, similar to what she has experienced in the past with heart attack. Denies shortness of breath. Denies dizziness. Denies diaphoresis. Denies
nausea or vomiting. Denies recent travel. Patient was given 325 mg aspirin by paramedics. In addition, patient was given multiple sublingual nitroglycerin spray, without improvement in symptoms.
Physical Exam
General: mild distress, not acutely ill. afebrile
Head: nc/at. eomi
Neck: supple. no meningeal signs.
Heart: s1/s2 regular rate and rhythm
Lungs: no acute respiratory distress. clear bilaterally
Abdomen: normal bowel sounds. not tender.
Neuro: alert and oriented x 3. no focal neurological deficits
Skin: no rash
Psychiatric: well kept. interactive and cooperative
Extremities: no edema. no calf tenderness.
History, exam, and blood work concerning for non-STEMI, with significant cardiac risk factors. Minimally elevated troponin noted. Will discuss cardiology and start patient on heparin protocol afterwards. Patient will be admitted for further
evaluation and treatment.
Cardiology on-call, Dr. Carmen, notified via [facility] text. Recommend starting patient on low-dose of nitroglycerin infusion, 5 mcg/min, for ongoing chest pain.
During observation, patient's blood pressure noted to be low. As such, after discussion with hospitalist service, patient provided with 500 mL normal saline bolus. If blood pressure worsens, will consider starting patient on Levophed infusion.
Potential levophed gtt to be discussed by admitting hospitalist with , cardiology.
Critical care statement: A total of 40 minutes of critical care time was provided for this patient. This includes management of unstable vital signs, evaluation of the patient at bedside, reviewing the patient's pertinent medical records, discussion
with consultants, review of old EKGs and review of pertinent medical records. This time with separate from time utilized to perform the aforementioned documented procedures
Discharge Plan
Departure
Patient Disposition: Admit
Date of Disposition: 03/22/25
Time of Disposition: 00:38
Presentation/result/management discussed w/ accepting MD/DO: Hospitalist
Condition: Fair
Discharge Problem:
Chest pain
Interventions
Interventions:
*Risk Screen - Suicide Last Done: 03/21/25 22:53
*General Assessment Last Done: 03/21/25 22:53
*Neglect/Abuse Screening Last Done: 03/21/25 22:53
*ED- Fall Risk Assessment Last Done: 03/21/25 22:53
*ED COVID-19 Vaccine History Last Done: 03/21/25 22:53
*ED Influenza Vaccine History Last Done: 03/21/25 22:53
*Nursing Disposition Last Done: 03/22/25 04:07
ED- Cardiac Assessment Last Done: 03/21/25 22:59
Discharge Date and Time
Discharge Date/Time: 03/22/25 04:09
[2025-03-21 23:30] LABS: ALT (SGPT) 14 U/L (0-35); AST (SGOT) 22 U/L (14-36); Albumin 3.9 g/dl (3.5-5.0); Alkaline Phosphatase 68 U/L (38-126); Blood Urea Nitrogen 20 mg/dl (7-17); Calcium 8.8 mg/dl (8.4-10.2); Carbon Dioxide 32 mmol/L (22-30); Chloride 104 mmol/L (98-107); Estimated Creatinine Clearance 91 ml/min; Glucose 113 mg/dl (70-99); Potassium 3.6 mmol/L (3.5-5.1); Sodium 139 mmol/L (135-145); Total Protein 6.4 g/dl (6.3-8.2); eGFR > 60.00
[2025-03-21 23:38] LABS: Troponin I 0.098 ng/ml
[2025-03-21] MEDS: MAALOX 40 PO (23:44)
[2025-03-21] MEDS: ZOFRAN 4 MG IV (23:57)
[2025-03-21] MEDS: MORPHINE SULFATE 4 MG IV (23:57)
[2025-03-22] VITALS (59 sets, daily range): BP systolic 70–122; BP diastolic 55–85; BMI 32.3
[2025-03-22 00:17] LABS: INR 2.07; PT 23.4 Sec (11.4-14.6)
[2025-03-22 00:53] LABS: APTT 39.1 Sec (23.4-35.0)
[2025-03-22] MEDS: HEPARIN 4000 UNITS IV (00:55)
[2025-03-22] MEDS: HEPARIN 25000 UNITS/250 ML IV (00:56)
[2025-03-22] MEDS: NSS 250 IV (01:13)
--- NOTE | 2025-03-22 01:23 | HPS.HSE ---
Family Physician
-
Family Physician: Parveen Haynes
Chief Complaint
-
Chest pain
History of Present Illness
Patient is a 59-year-old female was past medical history that is significant for atrial fibrillation on anticoagulation, CAD, hypertension, fibromyalgia, hyperlipidemia, depression and anxiety, history of stents in 1999 on [id number] and 18 who
presented emergency department with chest pain.
She arrived with significant mid sternal chest pain suddenly occurring about an hour prior to arrival. She received nitroglycerin spray x 3 by EMS without significant relief. She denies shortness of breath diaphoresis nausea or vomiting. Stated
that the pain radiating up to her neck and jaw and both shoulders and the scapula areas. She has a history of multiple cardiac stents and had a last cath in 2022 showing stable CAD modestly improved from 1 year prior.
She reports after nitroglycerin the pain reduced from 10 to 9. After morphine the Emergency Department did reduce to about a 6 but only to return. She is currently reporting pain as a 10 out of 10.
In the emergency department she was afebrile, blood pressure was initially 103/70 with repeat of 80 systolic after nitroglycerin. She was afebrile she is satting 94% on room air
ECG shows a normal sinus rhythm at a rate of [address] or T wave changes. CBC was unremarkable with a white count of 0.7 with normal hemoglobin platelet. Electrolytes BUN/creatinine were normal. Troponin was elevated at 0.1. INR
was 2.0. Chest x-ray shows no acute infiltrate.
Medical History
Past Medical History
Past Medical History: Reports Other (paroxysmal atrial fibrillation on Coumadin, CAD status post stents, hypertension, hyperlipidemia, obesity, fibromyalgia, anxiety/depression, chronic sciatica, GERD)
Past Surgical History: Reports Tonsilectomy and Other (Gynecological (Tubal ligation 1994) and Orthopedic (Orthopedic))
Social History
Tobacco: Smoker
Alcohol: None
Drug: None
Family History
Family History: Not pertinent
Allergies / Home Medications
Allergies reflects when Allergies were last updated in [facility].
Home Medications with original date entered in [facility]
Allergy/Medication List:
Allergies
Allergy/AdvReac Type Severity Reaction Status Date / Time
linezolid Allergy Hypotension Verified 08/14/24 19:13
and hives
morphine [Morphine] Allergy Does not Verified 08/14/24 19:13
like the
way it
made her
feel.
Home Medications
nitroglycerin 0.4 mg sublingual tablet 0.4 mg sublingual [id number] PRN chest pain ##25 03/06/17
ezetimibe 10 mg tablet 10 mg PO HS High cholesterol 12/19/21
trazodone 300 mg tablet 300 mg PO HS Mental Health/Anxiety ##0 12/19/21
rosuvastatin 40 mg tablet 40 mg PO HS High cholesterol 12/20/21
fenofibrate nanocrystallized 48 mg tablet 48 mg PO HS High cholesterol 12/31/21
metoprolol succinate 25 mg tablet,extended release 24 hr 12.5 mg PO HS Heart disease/condition 12/31/21
aspirin 81 mg tablet,delayed release 81 mg PO HS Blood clot prevention/tx 01/01/22
oxycodone 10 mg tablet 10 mg PO Q6HPRN PRN mod pain 12/22/22
gabapentin 300 mg capsule 300 mg PO DAILY Pain 02/14/23
warfarin 5 mg tablet 2.5 mg PO WEFRSA Blood Clot Prevention/Tx 02/14/23
warfarin 5 mg tablet 5 mg PO SUMOTUTH Blood Clot Prevention/Tx 02/14/23
alprazolam 0.25 mg tablet 0.25 mg PO BID PRN anxiety #10 tabs 02/26/23
Review of Systems
-
History Source: Patient
A 12 point ROS was completed and negative except as noted: Yes
Constitutional: Reports No Symptoms
EENT: Reports No Symptoms
Respiratory: Reports No Symptoms
Cardiac: Reports Chest Pain
Abdomen/GI: Reports No Symptoms
: Reports No Symptoms
Musculoskeletal: Reports No Symptoms
Skin: Reports See HPI
Neurological: Reports No Symptoms
Endocrine: Reports No Symptoms
Hematologic/Lymphatic: Reports No Symptoms
Psych: Reports No Symptoms
Physical Exam
Vital Signs
Vital Signs
Temp Pulse Resp BP Pulse Ox
98.4 F 72 16 103/70 94
03/21/25 22:49 03/22/25 00:15 03/22/25 00:15 03/22/25 00:00 03/22/25 00:15
Physical Exam
General: Well Developed, Well Nourished and No Apparent Distress
HEENT: NormoCephalic, Moist mucous membranes and Atraumatic
Respiratory: Clear
Cardiac: S1/S2 and Regular Rhythm; No Murmur or Rub
GI: Soft, Non Tender, Non Distended and Normal Bowel Sounds; No Organomegaly
Rectal: Deferred by Provider
Musculoskeletal: No Clubbing, No Cyanosis and Other (Bilateral nonpitting edema in the lower extremities)
Skin: Other; No Rash
Neuro: AO x 3 and Nonfocal/grossly intact
Psych: Calm
Laboratory Results
-
03/21/25 23:04
03/21/25 23:04
Laboratory Results
PT Cancelled 03/22/25 00:35
INR Cancelled 03/22/25 00:35
APTT Cancelled 03/22/25 00:35
Total Bilirubin 0.3 mg/dl (0.2-1.3) 03/21/25 23:04
AST 22 U/L (14-36) 03/21/25 23:04
ALT 14 U/L (0-35) 03/21/25 23:04
Alkaline Phosphatase 68 U/L (38-126) 03/21/25 23:04
Troponin I 0.098 ng/ml H* 03/21/25 23:04
Data Reviewed
-
Diagnostic Radiology: Image Personally Visualized and interpreted
Medical Tests (Nuc Med, Echo, EKG etc): Image Personally Visualized and interpreted
Lab Data: Labs Reviewed by me
Old Records: Reviewed
Impression/Plan
-
IMPRESSION:
60-year-old with past medical history significant for ischemic pneumoperitoneum, CAD status post tenting, atrial fibrillation on anticoagulation with warfarin presents to the emergency department with acute chest pain and found to have elevated
troponin of 0.1. No acute ECG changes. She has persistent chest pain radiating to the neck jaws and bilateral shoulders s/p nitroglycerin. However she is relatively hypotensive and cannot continue on nitroglycerin at this time.
PLAN:
NSTEMI
-Admit to IVU
-IV fluids to keep MAP greater than 65
-Started on heparin drip
- IV bolus to get MAP greater than 65 and SBP greater than 90, then start nitroglycerin as tolerated, low-dose Dilaudid as needed for pain
-Continue aspirin 81 daily
-Trend troponins, repeat ECG
-N.p.o. for now
-Cardiology consulted and aware
Atrial fibrillation -currently rate controlled
- Heparin drip
- Holding antihypertensives and metoprolol for BP
DVT prophylaxis�on heparin drip
CODE STATUS�full code
[2025-03-22] MEDS: NSS 500 IV ×2 (01:58→02:51)
[2025-03-22] MEDS: FLUSH (NSS) 1 FLUSH IV (02:12)
[2025-03-22] MEDS: NITROGLYCERIN PREMIX 250 IV (02:12)
[2025-03-22 03:49] LABS: Troponin I 2.640 ng/ml
--- NOTE | 2025-03-22 05:03 | ITS.CL.CATH ---
[address]ellate [facility] Clerk - Catheterization
Cardiac Catheterization
Procedure Report:
LEFT HEART CATHETERIZATION
Date of Procedure: 03/22/2025
Referring: Franki Carmen MD
PROCEDURES:
1. Left heart catheterization, coronary angiogram.
2. Moderate sedation.
3. Functional physiologic testing with iFR
INDICATION: concern for NSTEMI
ACCESS: Right common femoral artery, 6Fr. sheath, under US guidance using micropuncture kit
HEMODYNAMICS : (mmHg)
AO (s/d) : 99/59
LVEDP : 33
No significant gradient across the aortic valve to suggest aortic stenosis.
CORONARY FINDINGS
Dominance: Right
Left Main: Large vessel that gives rise to LAD and LCx and is free of angiographic disease.
Left anterior descending: Normal size vessel giving rise to 2 major diagonals branches. Patent stents are observed in the proximal/mid LAD. There is a 50% lesion in the proximal margin of the LAD stent, which is iFR negative (0.91).
Left Circumflex: Normal size, nondominant vessel giving rise to 3 obtuse marginals branches with mild slow flow without clear culprit obstructive lesion. OM1 is a small, submillimeter vessel. OM 2 is also a small artery, 1 mm in diameter with
moderate to severely diseased in its proximal margin, unchanged from previous. OM 3 is a much more substantial vessel supplying the majority of the inferolateral wall. LCX proper distal to OM3 has a patent stent.
RCA: Normal size, dominant vessel with mild diffuse atherosclerotic plaque.
HEMODYNAMIC ASSESSMENT OF THE mid LAD WITH A VOLCANO OMNI WIRE: The origin of the LCA was cannulated with a 6 Fr EBU3.5 guide catheter. Intravenous heparin was administered and the ACT was followed during the procedure. Two hundred micrograms of
intracoronary nitroglycerin was given through the guide catheter. A Sprague Omni wire was advanced to the guide catheter tip and normalized just outside the guide catheter. The Omni wire was then carefully manipulated across the stenosis in the
mid LAD with the iFR above the ischemic threshold serially measuring 0.91, 0.92. The Omni wire was then pulled back to the guide catheter where the Pd/Pa measured 1.0 confirming no baseline drift in pressure readings.
SEDATION: 37 minutes of procedural sedation was utilized. IV Midazolam and IV Fentanyl were administered. An independent certified medical asst was present to assist with and help manage the patient's level of consciousness and physiologic status.
RADIATION SUMMARY: Fluoro Time (min): 5.6, Dose (mGy): 386, DAP (Gy.cm2) : 21.4
Closure Device: Given INR of 2.1, right common femoral arterial sheath was sutured in place. Recommend recheck of INR and taking sheath out once INR is less than 1.8.
CONCLUSIONS
1. No obstructive coronary artery disease or clear culprit for ongoing chest pain. Mild to moderate atherosclerotic plaque and small vessel disease that significant but not PCI targets.
2. LVEDP significantly elevated at 33 mmHg.
RECOMMENDATIONS
1. Wean radial band per protocol. Monitor right hand perfusion and for bleeding from the radial site following removal of the vascular-band following trans-radial access.
2. Continue aggressive medical therapy and risk factor modification for secondary CAD prevention.
3. Hydrate with normal saline to mitigate the risk of contrast-induced acute kidney injury.
4. Echocardiogram to assess biventricular function and rule out any significant valvular abnormalities.
5. Urine drug screen given patient noted that she smoked something last evening.
Cesilia Jenkins MD, [facility], [facility]
--- NOTE | 2025-03-22 05:06 | PTCARENOTE ---
Received pt from ED. AAOx3, SR on tele, denies dizziness, lightheadedness, SOB. CP 5/10 described as pressure/shooting/stabbing. SBP 80s-90s.
troponin increase from 0.098 to 2.640, Dr. Salazar at bedside. STEMI called. Report given to coreroom foundry laborer. Pt sent with coreroom foundry laborer team @ approx [phone]. hep gtt stopped on transfer.
--- NOTE | 2025-03-22 07:15 | PTCARENOTE ---
Pt received from clinical laboratory service teacher, pt back in room.AAOx3, R fem 6 F sheath A line . Pt c/o 5/10 CP. Report given to pino Parker
[2025-03-22 07:33] LABS: ACT-LR - POC 321 Seconds (116-155)
--- NOTE | 2025-03-22 08:34 | CON.CAR ---
Consultation
Consultation Request
Date/Time Consultation Requested: 03/22/25, 4am
Date/Time Consultation Performed: 03/22/25, 8am
Requesting Provider: Martin
Performing Provider: Nella
Reason for Consultation: Chest pain
Medical History
-
Chief Complaint: chest pain
History of Present Illness:
60-year-old female with coronary artery disease status-post OM3 stent (2007), OM2 stent (2009), LAD stent (2013; NSTEMI), HUMERA to PLB (07/30/17), chronic HFmEF (LVEF 45-50%), paroxysmal atrial fibrillation (on coumadin), hypertension, hyperlipidemia,
former cigarette use (quit in 2017) is admitted with chest pain. �Started later in evening last night, and worsened, so she presented to ED. Troponin was mildly elevated with nonspecific ST changes. We treated for NSTEMI. CTA showed no evidence
of PE or aortic pathology. There was minimal relief with SL nitro. We tried nitro gtt, but patient became hypotensive and drug was stopped. She then complained of 10/10 chest pain, and troponin trended up. There was also sub-1mm ST elevation in
lateral leads. I discussed case with labor relations teacher, and we decided to proceed with cath for high risk NSTEMI.
Past Medical History
Past Medical History: Arrhythmias (paroxysmal A fib), CAD, CHF (chronic HFmEF), HTN, Hypercholesterolemia and NE
Past Surgical History: Other (multiple coronary stents)
Social History
Tobacco: Former Smoker
Family History
Family History: Early CAD (father)
Allergies / Home Medications
Allergy/AdvReac Type Severity Reaction Status Date / Time
linezolid Allergy Hypotension Verified 12/17/24 22:56
and hives
�Medication �Instructions �Recorded �Confirmed �Type
nitroglycerin 0.4 mg sublingual 0.4 mg sublingual [id number] PRN 03/06/17 12/17/24 Rx
tablet chest pain ##25
ezetimibe 10 mg tablet 10 mg PO HS High cholesterol 12/19/21 12/17/24 History
trazodone 300 mg tablet 300 mg PO HS Mental Health/Anxiety 12/19/21 12/17/24 History
##0
rosuvastatin 40 mg tablet 40 mg PO HS High cholesterol 12/20/21 12/17/24 History
fenofibrate nanocrystallized 48 mg 48 mg PO HS High cholesterol 12/31/21 12/17/24 History
tablet
metoprolol succinate 25 mg 12.5 mg PO HS Heart 12/31/21 12/17/24 History
tablet,extended release 24 hr disease/condition
aspirin 81 mg tablet,delayed 81 mg PO HS Blood clot 01/01/22 12/17/24 History
release prevention/tx
oxycodone 10 mg tablet 10 mg PO Q6HPRN PRN mod pain 12/22/22 12/17/24 History
gabapentin 300 mg capsule 300 mg PO DAILY Pain 02/14/23 12/17/24 History
warfarin 5 mg tablet 2.5 mg PO SUFRSA Blood Clot 02/14/23 12/17/24 History
Prevention/Tx
warfarin 5 mg tablet 5 mg PO MOTUWETH Blood Clot 02/14/23 12/17/24 History
Prevention/Tx
clobetasol 0.05 % topical cream 1 applic topical DAILY 12/17/24 12/17/24 History
Review of Systems
-
History Source: Patient
All other systems: Negative unless noted
Cardiac: Chest Pain
Physical Exam
Vital Signs
Temp Pulse Resp BP Pulse Ox
98.4 F 69 18 91/64 95
03/22/25 08:05 03/22/25 08:05 03/22/25 08:05 03/22/25 07:45 03/22/25 08:05
Lab Results
Troponin I 2.640 ng/ml H* D 03/22/25 03:14
Physical Exam
General: Well Developed, Well Nourished and No Apparent Distress
HEENT: Normocephalic and Anicteric
Respiratory: Clear and Non Labored Respirations
Cardiac: S1/S2 (normal), Regular Rhythm, Murmur (none) and Peripheral Edema (1+ LE)
Musculoskeletal: No Clubbing and No Cyanosis
Skin: Warm and Dry
Neuro: AO x 3
Psych: Calm
Impression / Plan
-
60-year-old female with coronary artery disease status-post OM3 stent (2007), OM2 stent (2009), LAD stent (2013; NSTEMI), HUMERA to PLB (07/30/17), chronic HFmEF (LVEF 45-50%), paroxysmal atrial fibrillation (on coumadin), hypertension, hyperlipidemia,
former cigarette use (quit in 2018) is admitted with chest pain.
# Chest pain
-CTA: no evidence of PE or aortic pathology
-EKG with sub-1mm ST elevation lateral leads, and trop rising to 2.6, and trending
-initially suspected NSTEMI, but cath shows non-obstructive CAD and LVEDP 33
-now suspect Type II NE in setting of acute HFmEF: plan to diurese
-echo
-trend trop
-groin sheath to come out when INR under 2
# Acute on chronic HFmEF, last EF 45-50%, likely ICM
-severe, requiring hospitalization, IV diuresis with close monitoring of labs/tele
-update echo
-BP is soft: start with lasix 20mg IV bid
-GDMT is limited by BP: home Toprol XL and lisinopril on hold
-lasix was prn as outpatient: she reports minimal response; perhaps we will try torsemide 20mg daily when ready for PO
-we discussed SGLT2i: she declines due to history of frequent UTI
-we discussed sodium reduction: she seems to have a high sodium diet at home
# CAD, complex
-no targets for PCI, prior stents patent
-cont ASA 81mg daily
-cont crestor and zetia
-resume Toprol if BP allows
# Paroxysmal A fib
-stable in in sinus
-Toprol held for low BP
-groin sheath to come out when INR under 2, then can resume coumadin
# Possible drug abuse
-'smoked something'--now she reports it was tobacco, counseled for cessation
-check UDS
Data Reviewed
-
EKG: Tracing Personally Visualized and interpreted (NSR, nonspecific ST abnl) and Other (Tele: NSR)
Medical Tests (Nuc Med, Echo etc): Report Reviewed by me (Cath 03/22/25: 1. No obstructive coronary artery disease or clear culprit for ongoing chest pain. Mild to moderate atherosclerotic plaque and small vessel disease that significant but not
PCI targets. 2. LVEDP significantly elevated at 33 mmHg.)
Labs: Labs Reviewed by me
Old Records: Reviewed
[2025-03-22 08:40] LABS: ACT-LR - POC > 397 Seconds (116-155)
[2025-03-22 08:40] LABS: ACT-LR - POC > 397 Seconds (116-155)
[2025-03-22 08:54] LABS: ACT-LR - POC 234 Seconds (116-155)
[2025-03-22 09:05] LABS: Hematocrit 35.0 % (37.0-47.0); Hemoglobin 11.2 g/dL (12.0-16.0); Mean Corp Hgb Conc. 32.0 g/dL (33.0-37.0); Mean Corpuscular Volume 88.2 fL (81.0-99.0); Platelet Count 290 10^3/uL (130-400); Red Cell Dist. Width 18.6 % (11.5-14.5)
[2025-03-22 09:13] LABS: INR 2.33; PT 26.0 Sec (11.4-14.6)
[2025-03-22 09:31] LABS: Troponin I 2.340 ng/ml
[2025-03-22 09:33] LABS: APTT > 200.0 Sec (23.4-35.0)
[2025-03-22 09:42] LABS: ACT-LR - POC 186 Seconds (116-155)
[2025-03-22 09:46] LABS: Glycohemoglobin (HgbA1c) 6.0 % (4.0-5.9)
[2025-03-22] MEDS: LASIX 20 MG IV ×2 (09:51→15:08)
[2025-03-22 10:53] LABS: ACT-LR - POC 170 Seconds (116-155)
[2025-03-22 11:21] LABS: Urine Character Clear (Clear)
[2025-03-22 11:40] LABS: Urine White Cell 0-2 /HPF (0-5)
[2025-03-22] MEDS: SUBLIMAZE 25 MCG IV (11:56)
[2025-03-22] MEDS: NSS 1000 IV (12:31)
--- NOTE | 2025-03-22 12:35 | W.PN.UPDATE ---
Update Note
Progress Note Update
Nonbillable note
1. Sternal chest pain, elevated troponin-AZ has been ruled out with patient getting left heart catheterization in night showing no new obstructive CAD. Patient heparin has been placed on hold. Cardio to transition to warfarin when medically
appropriate. CT chest ruled out any PE. Acute onset in nature and no other signs to suggest pericarditis. No significant reflux symptoms.
2. Heart failure exacerbation -possible reported dietary indiscretion. Cardiac wanting to do IV diuresis for volume optimization. Echocardiogram pending.
3. Dysuria -UA did not show any pyuria/bacteriuria. Holding on antibiotic.. Pyridium as needed ordered for symptomatic care.
[2025-03-22 12:38] LABS: Blood Urea Nitrogen 14 mg/dl (7-17); Calcium 8.0 mg/dl (8.4-10.2); Carbon Dioxide 25 mmol/L (22-30); Chloride 109 mmol/L (98-107); Estimated Creatinine Clearance 107 ml/min; HDL Cholesterol 49 mg/dl; LDL Cholesterol, Calculated 43 mg/dl; Potassium 3.9 mmol/L (3.5-5.1); Sodium 136 mmol/L (135-145); Very Low Density Lipoprotein 15 mg/dl (0-30); eGFR > 60.00
--- NOTE | 2025-03-22 13:46 | PTCARENOTE ---
Patient received at change of shift maintaining bedrest following cardiac cath. Right fem arterial sheath in place, zeroed. Dressing intact. Pedal pulse +2 to palpation. Discussed activity restrictions and bedrest while arterial sheath is in place
and following its removal. SR on telemetry. Oxygen saturation 93-97% on room air. The patient reported 3 out of 10 chest pain but reported that it was better than previous CP episodes. modular home crew member applied researcher Dr Weston made aware, ECG ordered and
completed. Heparin and nitro gtts off per orders. AM labs drawn and sent. Troponin trended to peak. clinical lab assistant team removed arterial sheath at approximately 1200 and held manual pressure for 30 minutes. Gauze and tegaderm applied, site remains C/D/I,
pedal pulse +2 to palpation. Discussed maintaining bedrest and keeping leg straight, patient verbalized understanding. Purewick in place draining clear yellow urine. Call morelos within reach. Care ongoing.
[2025-03-22 14:04] LABS: Glucose 50 mg/dl (70-99)
[2025-03-22 14:10] LABS: Glucose - Point of Care 110 mg/dl (70-99)
--- NOTE | 2025-03-22 14:13 | PTCARENOTE ---
Just received glucose result at 1400 from 0855 lab draw. Glucose from AM lab draw resulted at 50. Accucheck obtained, results 110mg/dl
[2025-03-22] MEDS: MAALOX 30 ML PO (14:43)
--- NOTE | 2025-03-22 15:00 | CM ---
spoke to pt in room, she is prev indep, lives with her husb in a 2 story home with 4 steps to enter. she denies any dc planning needs or dme's. plan is for dc to home when medically stable.
--- NOTE | 2025-03-22 15:01 | CM ---
priced Neil with pts [facility]- her copay is ZERO dollars, pt aware.
[2025-03-22] MEDS: ROXICODONE 10 MG PO (15:06)
--- NOTE | 2025-03-22 17:32 | PTCARENOTE ---
Patient OOB x1 assist following completion of bedrest. Ambulated to the bathroom and voided without difficulty. Right groin site with gauze and tegaderm C/D/I, pedal pulse +2 to palpation. The patient denies feeling dizzy or lightheaded. The patient
also reports that her chest pain has resolved completely, she stated she feels no chest pain at all. Patient OOB to the chair for dinner. Instructed to call for assistance if she would like to ambulate or use the bathroom. Call morelos within reach.
Care ongoing.
[2025-03-22] MEDS: CRESTOR 40 MG PO (21:22)
[2025-03-22] MEDS: TRICOR 48 MG PO (21:22)
[2025-03-22] MEDS: ASPIR LOW (ENTERIC COATED) 81 MG PO (21:22)
[2025-03-22] MEDS: MIRAPEX 0.125 MG PO (21:22)
[2025-03-22] MEDS: ZETIA 10 MG PO (21:22)
[2025-03-22] MEDS: NEURONTIN 300 MG PO (21:22)
--- NOTE | 2025-03-22 23:49 | PTCARENOTE ---
Received patient at change of shift. SR on the monitor, HR in the 70s. Scottie mcleod CDI, soft.
2224: BP 83/64, only symptom is being tired. WEEKEND RECEPTIONIST Fay Benavidez aware. BP now 92/65. WEEKEND RECEPTIONIST okay with systolic BP in the 90s with no lightheadedness or dizziness. Call morelos within reach.
[2025-03-23] VITALS: BP 90/61
[2025-03-23 04:38] VITALS: BP 91/59
[2025-03-23 04:47] VITALS: BMI 31.6
[2025-03-23 08:34] VITALS: BP 94/58
[2025-03-23] MEDS: LASIX 20 MG IV (08:40)
[2025-03-23 11:28] LABS: ALT (SGPT) 14 U/L (0-35); AST (SGOT) 31 U/L (14-36); Albumin 3.8 g/dl (3.5-5.0); Alkaline Phosphatase 58 U/L (38-126); Blood Urea Nitrogen 16 mg/dl (7-17); Calcium 9.2 mg/dl (8.4-10.2); Chloride 99 mmol/L (98-107); Estimated Creatinine Clearance 79 ml/min; Glucose 82 mg/dl (70-99); Potassium 4.7 mmol/L (3.5-5.1); Sodium 137 mmol/L (135-145); Total Protein 6.3 g/dl (6.3-8.2); eGFR > 60.00
[2025-03-23 11:34] LABS: Carbon Dioxide 37 mmol/L (22-30)
[2025-03-23 11:39] VITALS: BP 103/62
--- NOTE | 2025-03-23 11:56 | W.PN.CD ---
Today's Communication / Plan
-
Okay for discharge from a cardiovascular standpoint. She is borderline hypotensive but asymptomatic including with ambulation around the halls. Suspect a component of dehydration.
We discussed that she needs to call if she becomes lightheaded/dizzy or blood pressures are persistently less than 90/50.
Hold home metoprolol and lisinopril on discharge.
Discharged with Lasix 40 mg as needed for weight gain >3 lb overnight or >5 lb in 1 week
Our office will arrange follow-up in the next 2 weeks.
Impression / Plan
-
60-year-old female with coronary artery disease status-post OM3 stent (2007), OM2 stent (2009), LAD stent (2013; NSTEMI), HUMERA to PLB (07/30/17), chronic HFmEF (LVEF 45-50%), paroxysmal atrial fibrillation (on coumadin), hypertension, hyperlipidemia,
former cigarette use (quit in 2017) is admitted with chest pain and elevated troponin, found to have no recurrent obstructive coronary artery disease and Takotsubo's cardiomyopathy.
Takotsubo's cardiomyopathy
-She presented with chest pain, elevated troponin, with no recurrent obstructive coronary artery disease on catheterization. Previous LVEF 45-50%, now down to 20%. Unclear trigger for stress cardiomyopathy.
-TTE 03/22/2025: LVEF 20%, akinesis of the mid to apical wall segments, no VHD, findings suggestive of Takotsubo's cardiomyopathy
-Treatment for Takotsubo's cardiomyopathy is supportive care. Most cases resolve within weeks.
-She is unable to tolerate beta-ana or ALETHA inhibitor due to low blood pressures. Hold home metoprolol and lisinopril on discharge.
-She will need a repeat echocardiogram in 3 months
-Will discharge on as needed p.o. Lasix 40 mg. She knows to weigh herself daily and take a dose if weight increases by more than 3 pounds overnight or 5 pounds in 1 week.
Hypotension
-Suspect due to low EF with some component of dehydration
-She is asymptomatic even with ambulation around the halls
-Hold metoprolol and lisinopril on discharge
-I asked her to monitor BP daily and call us if she is having lightheaded/dizziness or blood pressure is consistently less than 90/50.
HFrEF, acute on chronic
-As above, her EF was previously 45-50%, now down to 20% due to stress cardiomyopathy
-GDMT on hold due to low blood pressures
-She declined SGLT2 inhibitor due to history of frequent UTIs
# CAD, complex
-C with no targets for PCI, prior stents patent
-cont ASA 81mg daily
-cont crestor and zetia
# Paroxysmal A fib
-stable in in sinus
-Toprol held for low BP
Subjective: Feels well. Chest pain has completely resolved. She denies shortness of breath. Lower extremity is at baseline. She has been able to walk the halls without any lightheadedness or dizziness.
Physical Exam
Vital Signs/Labs
Vital Signs
Temp Pulse Resp BP Pulse Ox
98.5 F 70 18 94/58 95
03/23/25 11:42 03/23/25 11:42 03/23/25 11:42 03/23/25 08:34 03/23/25 11:42
03/22/25 03/23/25 03/24/25
06:59 06:59 06:59
Actual Weight 194 lb 3.636 oz 189 lb 13.088 oz
03/23/25 10:58
PT Cancelled 03/22/25 15:00
INR Cancelled 03/22/25 15:00
APTT > 200.0 Sec (23.4-35.0) H* 03/22/25 08:55
Triglycerides 75 mg/dl (10-149) 03/22/25 08:55
LDL Cholesterol, Calc 43 mg/dl 03/22/25 08:55
VLDL Cholesterol, Calc 15 mg/dl (0-30) 03/22/25 08:55
HDL Cholesterol 49 mg/dl 03/22/25 08:55
LAB Results
03/21/25 03/22/25 03/22/25
23:04 03:14 04:15
Troponin I 0.098 H* 2.640 H* D Cancelled
03/22/25 03/22/25
08:55 10:15
Troponin I 2.340 H* Cancelled
Physical Exam
Constitutional: No acute distress and Comfortable
Cardiovascular: Rhythm & rate is regular, Pedal edema present (trace), S1S2 is normal and Murmur/rub/gallop absent
Respiratory: Respiratory effort normal and Lungs clear to auscul.
Neuro/Psych: AO x 3
Data Reviewed
-
Date of Service: March 23, 2025
Medical Decision Making: External Notes, Reviewed Test Results, Test Interpretation and Review of Case with other Provider
EKG: Tracing Personally Visualized and interpreted
Echo: Report Reviewed by me
Labs: Labs Reviewed by me
[2025-03-23 12:08] LABS: Hematocrit 39.8 % (37.0-47.0); Hemoglobin 12.9 g/dL (12.0-16.0); Mean Corp Hgb Conc. 32.4 g/dL (33.0-37.0); Mean Corpuscular Volume 87.7 fL (81.0-99.0); Platelet Count 328 10^3/uL (130-400); Red Cell Dist. Width 18.8 % (11.5-14.5)
--- NOTE | 2025-03-23 12:24 | W.DCSUMMARY ---
Discharge Summary
Discharge Data
Date of Admission: 03/22/25
Date of Discharge: 03/23/25
-
Pending Results: No
Hospital Course
Discharging Physician : Dr Omar García
Disposition : To home
Primary care physician : Dr Parveen Haynes
Principal Discharge diagnosis :
Takotsubo cardiomyopathy
Acute systolic congestive heart failure
Hypotension
Chronic Discharge diagnosis :
History of complex coronary disease/stenting
Paroxysmal atrial fibrillation
Hyperlipidemia
Neuropathy
Depression/anxiety
Sciatica
Gastroesophageal reflux disease
History of tubal ligation
Physical examination :
GEN: aox3
HEENT: moist mucus membrane,
Chest: Clear to auscultation
Heart: N s1/s2, RRR, no murmur
Abd: N BS, soft, nontender, nondistended
Neuro: No motor or sensory deficits
Ext: No edema
: No Rt Femoral access site swelling/pain
Hospital Course :
Patient is a 60-year-old female with above-mentioned past medical history came to ER with new onset of sternal chest pain. Symptoms were acute onset in nature with patient taking 3 doses of nitroglycerin without much benefit. Pain was radiating to
neck and jaw and both shoulders as well. Initial troponin was 0.01 although later check within 4 hours showed it to be 2.6. In light of ongoing chest pain and known coronary disease patient was taken to heart catheterization emergently. Left
heart catheterization did not show any obstructive CAD. Patient was brought back to cardiac unit. A follow-up echocardiogram was done which showed a decrease in EF to 20% from previous EF of 45 to 50%. Patient felt to having Takotsubo
cardiomyopathy from unknown trigger. Patient was provided IV diuretic and had improvement in symptoms over next 24 hours. At discharge cardiology recommended for patient to be maintained on as needed Lasix. Patient will require follow-up with
cardiology in office and repeat echocardiogram.
Patient of note was also noted to be hypotensive and cardiology recommended for patient to be discharged off of beta-ana/ALETHA. Patient to follow-up in cardiology office with further reconsideration of reinitiation of therapy.
Important imaging findings :
None
Procedure findings :
None
Discharge Plan
-
Patient Disposition: Home (Routine Discharge)
Discharge Diagnosis/Procedures: HF exacerbation, Chest pain
Condition: Fair
Diet: 2 Gram Sodium
Activity: As tolerated
Driving Restrictions: As prior to admission
Bathing Restrictions: OK to Shower
Blood Work: Continue INR check with coumadin clinic
Referrals:
Parveen Haynes MD [Family Provider, Family Practice] - in one week
Josh Weston MD [Active, Cardiology] - in one to two weeks
Prescriptions:
New
furosemide [Lasix] 40 mg tablet
40 mg PO DAILY Qty: 30 0RF
Continued
nitroglycerin 0.4 MG tablet, sublingual
0.4 mg sublingual [id number] PRN (Reason: chest pain) Qty: 25 3RF
trazodone 300 mg Tablet
300 mg PO HS Qty: 0
Patient Comments:
12/31/21 DOES NOT TAKE WITH PAIN MEDS, hold with oxycodone
ezetimibe 10 mg Tablet
10 mg PO HS
rosuvastatin 40 MG tablet
40 mg PO HS
fenofibrate nanocrystallized 48 mg tablet
48 mg PO HS
aspirin 81 mg Tablet,Delayed Release (Dr/Ec)
81 mg PO HS
oxycodone 10 mg tablet
10 mg PO Q6HPRN PRN (Reason: mod pain)
Patient Comments:
pt says she usually takes it once at bedtime
warfarin 5 mg Tablet
2.5 mg PO SUFRSA
Patient Comments:
patient states that her doses have been changing recently
warfarin 5 mg Tablet
5 mg PO MOTUWETH
Patient Comments:
patient states that her doses have been changing recently
gabapentin 300 mg capsule
300 mg PO HS
clobetasol 0.05 % Cream
1 applic TOPICAL DAILY
Patient Comments:
pt applies to LLE
pramipexole 0.125 mg Tablet
0.125 mg PO QPM
Held
metoprolol succinate 25 mg Tablet Extended Release 24 Hr
12.5 mg PO HS
Hold Instructions: Resume on 04/05/25. Hold till cleared by cardiology on follow up in office
Discharge Orders:
Discharge Patient (As Directed); Ordered 03/23/25
Ordered By: Omar García
Care Plan Goals
Care Plan Goals:
Problem: Readiness for enhanced knowledge related to diagnosis and treatment plan
Goal: Understand your diagnosis and treatment plan needs, including medications if applicable.
Instructions: Know your diagnosis, underlying causes and treatment plan options, including medications if applicable. Consult with your health care team to learn about your diagnosis and treatment plan, including medications if applicable.
Discharge Date and Time
Print Language: NIUEAN
--- NOTE | 2025-03-23 15:00 | PTCARENOTE ---
Pt received this am with no c/o of any chest pain or sob. Right groin site dressing dry and intact, site WNL. SB - SR on the monitor, rate in the 70's to 80's. Pt discharged to home with her . Discharge instructions given and reviewed with
good understanding and all questions answered.
== END 2025-03-23 15:00 | disposition home or self-care (01) | DRG 286 ==
LOC: IVU 01:40
PROVIDERS: Internal Medicine Interventional Cardiology; Nurse Practitioner; Registered Nurse; Student in an Organized Health Care Education/Training Program; ADMITTING PHYSICIAN Internal Medicine; ATTENDING PHYSICIAN Hospitalist; CONSULT PHYSICIAN Internal Medicine; EMERGENCY PHYSICIAN Emergency Medicine; FAMILY PHYSICIAN Family Medicine
PROC: 4A033BC Measurement of Arterial Pressure, Coronary, Percutaneous Approach (ICD-10-PCS; 2025-03-22)
PROC: 4A023N7 Measurement of Cardiac Sampling and Pressure, Left Heart, Percutaneous Approach (ICD-10-PCS; 2025-03-22)
PROC: B2111ZZ Fluoroscopy of Multiple Coronary Arteries using Low Osmolar Contrast (ICD-10-PCS; 2025-03-22)
DX: I51.81 Takotsubo syndrome (principal); I50.23 Acute on chronic systolic (congestive) heart failure; I11.0 Hypertensive heart disease with heart failure; I48.0 Paroxysmal atrial fibrillation; I95.9 Hypotension, unspecified; F41.9 Anxiety disorder, unspecified; F32.A Depression, unspecified; K21.9 Gastro-esophageal reflux disease without esophagitis; I25.10 Atherosclerotic heart disease of native coronary artery without angina pectoris; F17.200 Nicotine dependence, unspecified, uncomplicated; Z79.82 Long term (current) use of aspirin; Z79.899 Other long term (current) drug therapy; Z79.01 Long term (current) use of anticoagulants; Z95.5 Presence of coronary angioplasty implant and graft; E11.9 Type 2 diabetes mellitus without complications; E66.9 Obesity, unspecified; Z68.31 Body mass index [BMI] 31.0-31.9, adult; E78.00 Pure hypercholesterolemia, unspecified; I25.2 Old myocardial infarction; Z82.49 Family history of ischemic heart disease and other diseases of the circulatory system
CPT/HCPCS: 71045; 71275; 80048; 80053; 80061; 80306; 80307; 81003; 81015; 82962; 83036; 84484; 85025; 85027; 85347; 85610; 85730; 87070; 93005; 93306; 93458; 93799; 96365; 96366; 96367; 96375; 99152; 99153; 99291; C1769; C1894; Q9950; Q9967

== ENCOUNTER 2025-04-06 13:52 | Outpatient (REF) | payer OTHER, SELFPAY | END 2025-04-06 23:59 | disposition home or self-care (01) | LOC: WOUND 13:52 | PROVIDERS: ATTENDING PHYSICIAN Registered Nurse; FAMILY PHYSICIAN Family Medicine | DX: L97.222 Non-pressure chronic ulcer of left calf with fat layer exposed (principal); L88 Pyoderma gangrenosum; I48.0 Paroxysmal atrial fibrillation; I25.5 Ischemic cardiomyopathy; Z79.01 Long term (current) use of anticoagulants | CPT/HCPCS: 99213 ==